=== PATIENT | female | born 1960 | race Caucasian/White ===

== ENCOUNTER 2018-10-28 20:22 | Inpatient (IN) | payer OTHER | END 2018-11-01 13:56 | disposition home or self-care (01) | LOC: EAST 10-31 09:47 → TELE 22:10 → TELE-EAST 10-29 08:43 → ER 20:22 | PROC: 0FT44ZZ Resection of Gallbladder, Percutaneous Endoscopic Approach (ICD-10-PCS; principal; 2018-10-30 13:25) | DX: A41.9 Sepsis, unspecified organism (principal); N17.0 Acute kidney failure with tubular necrosis; E87.0 Hyperosmolality and hypernatremia; F20.9 Schizophrenia, unspecified; N39.0 Urinary tract infection, site not specified; K80.10 Calculus of gallbladder with chronic cholecystitis without obstruction; I10 Essential (primary) hypertension ==

== ENCOUNTER 2020-08-03 08:38 | Emergency (ER) | payer OTHER ==
[~2020-08-03] VITALS: Ht 160 cm; Wt 116.1 kg
[~2020-08-03 08:38] MED LIST: BENZ0.5T19 PO; CEPH-37 PO; FLUC100T34 PO; GLIP10TA9 PO; INSU1INJ19 SC; LOSA-69 PO; METF-929 PO; PANT40T PO; ZIPR80CA37 PO
[2020-08-03] MEDS ORDERED: cloNIDine HCL 0.1 MG TAB PO ONE (09:00)
[2020-08-03 09:53] VITALS: BP 142/98
[2020-08-03] MEDS ORDERED: ACETAMINOPHEN/CODEINE#3 (300/30mg) TAB PO ONE (10:15)
[2020-08-03] MEDS ORDERED: LIDOCAINE 1% HCL (LOCAL ANESTH.) INJ 20ML MDV IJ ONE (10:15)
[2020-08-03] MEDS ORDERED: TETANUS-DIPTH-ACEL PERTUSSIS 0.5ML SYR Tdap IM ONE (10:45)
== END 2020-08-03 11:51 | disposition home or self-care (01) ==
LOC: ER 08:38
DX: S62.632B Displaced fracture of distal phalanx of right middle finger, initial encounter for open fracture (principal); E11.9 Type 2 diabetes mellitus without complications; I10 Essential (primary) hypertension; E78.5 Hyperlipidemia, unspecified; Z79.899 Other long term (current) drug therapy; W19.XXXA Unspecified fall, initial encounter; Y93.89 Activity, other specified; Y92.89 Other specified places as the place of occurrence of the external cause; Y99.8 Other external cause status
CPT/HCPCS: 11760; 73140; 73630; 90471; 90715; 99284; J2001

== ENCOUNTER 2020-08-14 07:02 | Emergency (ER) | payer OTHER ==
[~2020-08-14] VITALS: Ht 160 cm; Wt 116.1 kg
[2020-08-14 07:05] VITALS: BP 161/83
== END 2020-08-14 08:33 | disposition home or self-care (01) ==
LOC: ER 07:02
DX: S61.212D Laceration without foreign body of right middle finger without damage to nail, subsequent encounter (principal); E11.9 Type 2 diabetes mellitus without complications; E78.5 Hyperlipidemia, unspecified; I10 Essential (primary) hypertension; Z76.0 Encounter for issue of repeat prescription; Z88.1 Allergy status to other antibiotic agents; X58.XXXD Exposure to other specified factors, subsequent encounter

== ENCOUNTER 2020-09-09 09:46 | Emergency (ER) | payer OTHER ==
[~2020-09-09] VITALS: Ht 160 cm; Wt 116.1 kg
[2020-09-09 10:08] VITALS: BP 130/100
[2020-09-09] MEDS ORDERED: ACETAMINOPHEN 500 MG TAB PO ONE (10:30)
== END 2020-09-09 12:15 | disposition home or self-care (01) ==
LOC: ER 09:46 → EDBD 09:46 → ER 12:15
DX: S39.012A Strain of muscle, fascia and tendon of lower back, initial encounter (principal); M51.36 Other intervertebral disc degeneration, lumbar region; E11.9 Type 2 diabetes mellitus without complications; E78.5 Hyperlipidemia, unspecified; I10 Essential (primary) hypertension; Z88.1 Allergy status to other antibiotic agents; W01.0XXA Fall on same level from slipping, tripping and stumbling without subsequent striking against object, initial encounter; Y93.01 Activity, walking, marching and hiking; Y92.89 Other specified places as the place of occurrence of the external cause; Y99.8 Other external cause status
CPT/HCPCS: 72100; 72220

== ENCOUNTER 2021-08-12 08:56 | Emergency (ER) | payer OTHER ==
[~2021-08-12] VITALS: Ht 160 cm; Wt 115.7 kg
[2021-08-12] MEDS ORDERED: FAMO20TA10 PO (09:24)
[2021-08-12] MEDS ORDERED: PRED20TA2 PO (09:24)
[2021-08-12] MEDS ORDERED: LORazepam 0.5 MG TAB PO ONE (09:45)
[2021-08-12 10:32] LABS: Basophils # (auto) 0.1 10 ^3/uL (0-0.2); Eosinophils # (auto) 0.1 10 ^3/uL (0-0.8); Eosinophils % (auto) 1.9 % (0.0-7.0); Hematocrit 38.5 % (36.0-46.0); Hemoglobin 12.9 g/dL (12.2-16.2); Lymphocytes # (auto) 1.2 10 ^3/uL (0.4-5.4); Lymphocytes % (auto) 18.2 % (10.0-50.0); Mean Corpuscular Hemoglobin 28.3 pg (28.0-32.0); Mean Corpuscular Hgb Conc. 33.6 g/dL (32.0-36.0); Mean Corpuscular Volume 84.2 fL (80.0-100.0); Monocytes # (auto) 0.5 10 ^3/uL (0-1.3); Monocytes % (auto) 7.1 % (0.0-12.0); Neutrophils # (auto) 4.8 10 ^3/uL (1.6-8.6); Neutrophils % (auto) 70.8 % (37.0-80.0); Red Blood Cells 4.57 10^6/uL (4.0-5.20); White Blood Cell 6.8 10^3/uL (4.4-10.8)
[2021-08-12 11:10] LABS: Albumin 2.7 g/dL (3.4-5.0); BUN/Creatinine Ratio 20.8; Calcium 8.8 mg/dL (8.5-10.1); Potassium 3.9 mmol/L (3.5-5.1)
[2021-08-12 11:14] LABS: Bilirubin, Total 0.2 mg/dL (0.2-1.0); Total Protein 7.1 g/dL (6.4-8.2)
[2021-08-12 12:15] VITALS: BP 119/62
[2021-08-12 12:43] LABS: Urine Bacteria NONE SEEN /hpf (None Seen); Urine Blood 2+ /uL (Negative); Urine WBC 203 /hpf (0 - 5); Urine WBC Clumps PRESENT /hpf (None Seen)
== END 2021-08-12 14:06 | disposition home or self-care (01) ==
LOC: ER 08:56
DX: G45.9 Transient cerebral ischemic attack, unspecified (principal); I10 Essential (primary) hypertension; E11.9 Type 2 diabetes mellitus without complications; E78.5 Hyperlipidemia, unspecified; Z79.4 Long term (current) use of insulin; Z79.899 Other long term (current) drug therapy; Z88.1 Allergy status to other antibiotic agents; Z88.8 Allergy status to other drugs, medicaments and biological substances
CPT/HCPCS: 36415; 70450; 80053; 81001; 84484; 85025

== ENCOUNTER 2022-02-09 09:16 | Emergency (ER) | payer OTHER ==
[~2022-02-09] VITALS: Ht 160 cm; Wt 115.0 kg
[~2022-02-09 09:16] MED LIST changes: +FAMO20TA10 PO; +PRED20TA2 PO
[2022-02-09 10:39] VITALS: BP 115/97
[2022-02-09] MEDS ORDERED: KETO2CRE4 TOP (11:05)
[2022-02-09] MEDS ORDERED: CEPH-510 PO (11:05)
[2022-02-09] MEDS ORDERED: METR500T PO (11:05)
== END 2022-02-09 11:15 | disposition home or self-care (01) ==
LOC: ER 09:16
DX: N76.0 Acute vaginitis (principal); B35.6 Tinea cruris; I10 Essential (primary) hypertension; E11.9 Type 2 diabetes mellitus without complications; E78.5 Hyperlipidemia, unspecified; Z79.4 Long term (current) use of insulin; Z79.899 Other long term (current) drug therapy; Z88.1 Allergy status to other antibiotic agents; Z88.8 Allergy status to other drugs, medicaments and biological substances
CPT/HCPCS: 87210

== ENCOUNTER 2022-06-12 13:43 | Inpatient (IN) | payer OTHER ==
[~2022-06-12] VITALS: Ht 160 cm; Wt 150.2 kg
[~2022-06-12 13:43] MED LIST changes: +CEPH-510 PO; +KETO2CRE4 TOP; +METR500T PO
[2022-06-12 15:42] LABS: Basophils # (auto) 0 10 ^3/uL (0-0.2); Basophils % (auto) 0.3 % (0.0-2.0); Eosinophils # (auto) 0 10 ^3/uL (0-0.8); Eosinophils % (auto) 0.6 % (0.0-7.0); Hematocrit 37.1 % (36.0-46.0); Hemoglobin 11.5 g/dL (12.2-16.2); Lymphocytes # (auto) 0.7 10 ^3/uL (0.4-5.4); Lymphocytes % (auto) 8.8 % (10.0-50.0); Mean Corpuscular Hgb Conc. 31.2 g/dL (32.0-36.0); Mean Corpuscular Volume 86.5 fL (80.0-100.0); Monocytes # (auto) 0.7 10 ^3/uL (0-1.3); Monocytes % (auto) 8.9 % (0.0-12.0); Neutrophils # (auto) 6.7 10 ^3/uL (1.6-8.6); Neutrophils % (auto) 81.4 % (37.0-80.0); Red Blood Cells 4.28 10^6/uL (4.0-5.20); Red Cell Distribution Width 17.1 % (11.8-14.3); White Blood Cell 8.2 10^3/uL (4.4-10.8)
[2022-06-12 15:54] LABS: Albumin 2.9 g/dL (3.4-5.0); Potassium 4.4 mmol/L (3.5-5.1)
[2022-06-12 15:56] LABS: Bilirubin, Total 0.2 mg/dL (0.2-1.0); Total Protein 6.6 g/dL (6.4-8.2)
[2022-06-12 22:12] LABS: Urine Bacteria MOD /hpf (None Seen); Urine Blood 1+ /uL (Negative); Urine Mucus FEW (None Seen); Urine Specific Gravity 1.022 (1.001-1.035); Urine WBC 60 /hpf (0 - 5)
[2022-06-13] MEDS ORDERED: ALBUTEROL SULF 2.5 MG/0.5ML(0.5%) NEB SOLN NEB PRN ×2 (01:15→11:00)
[2022-06-13] MEDS ORDERED: AZITHROMYCIN 500MG/ 250ML 250 ML IV ONE (01:15)
[2022-06-13] MEDS ORDERED: DEXTROSE (50%) 50ML SYRG IV PRN (01:15)
[2022-06-13] MEDS ORDERED: ACETAMINOPHEN 325 MG TAB PO PRN (01:15)
[2022-06-13] MEDS ORDERED: cefTRIAXone 1GM/50ML D5W 50 ML IV ONE (01:15)
[2022-06-13] MEDS ORDERED: TEMAZEPAM 15 MG CAP PO PRN (01:15)
[2022-06-13] MEDS ORDERED: ONDANSETRON HCL 4 MG/2 ML VIAL IV PRN (01:15)
[2022-06-13] MEDS ORDERED: IOHEXOL 350 MG/ML 100ML IJ ONE (01:42)
[2022-06-13 03:00] VITALS: BP 147/75
[2022-06-13] MEDS ORDERED: ALBUTEROL MEDNEB 2.5 mg/3ml NEB ONE (03:09)
[2022-06-13] MEDS: InsuLIN REG 1unit/0.01ml Soln (100units/ml) SC SCH ×4 (07:00→23:03)
[2022-06-13] MEDS: ACCU-CHEK COMFORT CURVE STRIP VI SCH ×4 (07:00→22:00)
[2022-06-13] MEDS: ENOXAPARIN SOD 40 MG/0.4 ML SYRINGE SC SCH (10:04)
[2022-06-13] MEDS: MULTIPLE VITAMIN TAB PO SCH (10:04)
[2022-06-13] MEDS: PANTOPRAZOLE 40 MG TAB PO SCH (10:04)
[2022-06-13] MEDS: LOSARTAN POTASSIUM 50 MG TAB PO SCH (10:05)
[2022-06-13] MEDS ORDERED: MORPHINE SULFATE INJ 2 MG/ml SYRG IV PRN (11:00)
[2022-06-13] MEDS ORDERED: HYDROcodone-ACET 5/325MG TAB PO PRN (11:00)
[2022-06-13] MEDS ORDERED: DOCUSATE SOD 100 MG CAP PO PRN (11:00)
[2022-06-13] MEDS ORDERED: ACETAMINOPHEN 500 MG TAB PO PRN (11:00)
[2022-06-13] MEDS ORDERED: IPRATROPIUM BROM 0.5 MG/2.5ML INH SOL NEB PRN (11:00)
[2022-06-13] MEDS: PIPERACILLIN-TAZOB 3.375GM 100 ML IV SCH ×2 (12:16→19:50)
[2022-06-13] MEDS ORDERED: cefTRIAXone 1GM/50ML D5W 50 ML IV SCH (21:00)
[2022-06-13 22:24] VITALS: BP 148/74
[2022-06-13 22:26] VITALS: BP 148/74
[2022-06-13] MEDS ORDERED: CEPH500C PO (22:50)
[2022-06-13] MEDS: AZITHROMYCIN 500MG/ 250ML 250 ML IV SCH (23:02)
[2022-06-14] MEDS: PIPERACILLIN-TAZOB 3.375GM 100 ML IV SCH ×4 (01:39→18:35)
[2022-06-14 05:00] VITALS: BP 116/60
[2022-06-14] MEDS: InsuLIN REG 1unit/0.01ml Soln (100units/ml) SC SCH ×4 (06:23→21:36)
[2022-06-14] MEDS: ACCU-CHEK COMFORT CURVE STRIP VI SCH ×4 (06:23→21:36)
[2022-06-14 06:59] LABS: Albumin 2.9 g/dL (3.4-5.0); Calcium 8.5 mg/dL (8.5-10.1); Potassium 4.6 mmol/L (3.5-5.1)
[2022-06-14 07:02] LABS: BUN/Creatinine Ratio 27.9; Bilirubin, Total 0.3 mg/dL (0.2-1.0); Total Protein 6.2 g/dL (6.4-8.2)
[2022-06-14 07:06] LABS: Basophils # (auto) 0 10 ^3/uL (0-0.2); Eosinophils # (auto) 0.1 10 ^3/uL (0-0.8); Monocytes # (auto) 0.7 10 ^3/uL (0-1.3)
[2022-06-14 07:10] LABS: Basophils % (auto) 0.4 % (0.0-2.0); Eosinophils % (auto) 1.3 % (0.0-7.0); Hematocrit 34.6 % (36.0-46.0); Hemoglobin 10.5 g/dL (12.2-16.2); Lymphocytes # (auto) 0.7 10 ^3/uL (0.4-5.4); Lymphocytes % (auto) 9.4 % (10.0-50.0); Mean Corpuscular Hemoglobin 26.3 pg (28.0-32.0); Mean Corpuscular Hgb Conc. 30.4 g/dL (32.0-36.0); Mean Corpuscular Volume 86.8 fL (80.0-100.0); Neutrophils # (auto) 5.9 10 ^3/uL (1.6-8.6); Neutrophils % (auto) 79.9 % (37.0-80.0); Red Blood Cells 3.99 10^6/uL (4.0-5.20); Red Cell Distribution Width 16.9 % (11.8-14.3); White Blood Cell 7.4 10^3/uL (4.4-10.8)
[2022-06-14 09:00] VITALS: BP 129/54
[2022-06-14] MEDS ORDERED: DIPHENOXYLATE W/ATROPINE 2.5 MG TAB PO PRN (10:15)
[2022-06-14] MEDS: ENOXAPARIN SOD 40 MG/0.4 ML SYRINGE SC SCH (11:02)
[2022-06-14] MEDS: MULTIPLE VITAMIN TAB PO SCH (11:03)
[2022-06-14] MEDS: PANTOPRAZOLE 40 MG TAB PO SCH (11:03)
[2022-06-14] MEDS: FLORASTOR (S. BOULARDII) 250 MG CAP PO SCH (11:03)
[2022-06-14] MEDS: LOSARTAN POTASSIUM 50 MG TAB PO SCH (11:03)
[2022-06-14 13:00] VITALS: BP 133/69
[2022-06-14 16:21] VITALS: BP 131/72
[2022-06-14 20:00] VITALS: BP 116/48
[2022-06-14 22:00] VITALS: BP 116/48
[2022-06-14] MEDS: AZITHROMYCIN 500MG/ 250ML 250 ML IV SCH (22:54)
[2022-06-15] VITALS (8 sets, daily range): BP systolic 103–134; BP diastolic 52–72
[2022-06-15] MEDS: PIPERACILLIN-TAZOB 3.375GM 100 ML IV SCH ×4 (01:09→18:00)
[2022-06-15] MEDS ORDERED: ALBUTEROL MEDNEB 2.5 mg/3ml NEB ONE (01:51)
[2022-06-15] MEDS: ACCU-CHEK COMFORT CURVE STRIP VI SCH ×4 (05:36→22:00)
[2022-06-15] MEDS: InsuLIN REG 1unit/0.01ml Soln (100units/ml) SC SCH ×4 (05:55→22:00)
[2022-06-15] MEDS ORDERED: FUROSEMIDE 20 MG TAB PO ONE (09:30)
[2022-06-15] MEDS: PANTOPRAZOLE 40 MG TAB PO SCH (10:07)
[2022-06-15] MEDS: ENOXAPARIN SOD 40 MG/0.4 ML SYRINGE SC SCH (10:07)
[2022-06-15] MEDS: FLORASTOR (S. BOULARDII) 250 MG CAP PO SCH (10:07)
[2022-06-15] MEDS: LOSARTAN POTASSIUM 50 MG TAB PO SCH (10:07)
[2022-06-15] MEDS: MULTIPLE VITAMIN TAB PO SCH (10:07)
[2022-06-15] MEDS: AZITHROMYCIN 500MG/ 250ML 250 ML IV SCH (21:57)
[2022-06-16] MEDS: PIPERACILLIN-TAZOB 3.375GM 100 ML IV SCH ×2 (02:33→11:41)
[2022-06-16 05:00] VITALS: BP 145/69
[2022-06-16 05:48] LABS: Basophils # (auto) 0.1 10 ^3/uL (0-0.2); Basophils % (auto) 1.5 % (0.0-2.0); Eosinophils # (auto) 0.1 10 ^3/uL (0-0.8); Eosinophils % (auto) 1.9 % (0.0-7.0); Hematocrit 33.3 % (36.0-46.0); Hemoglobin 10.2 g/dL (12.2-16.2); Lymphocytes # (auto) 0.5 10 ^3/uL (0.4-5.4); Lymphocytes % (auto) 7.4 % (10.0-50.0); Mean Corpuscular Hemoglobin 26.3 pg (28.0-32.0); Mean Corpuscular Hgb Conc. 30.5 g/dL (32.0-36.0); Mean Corpuscular Volume 86.3 fL (80.0-100.0); Monocytes # (auto) 0.7 10 ^3/uL (0-1.3); Monocytes % (auto) 9.1 % (0.0-12.0); Neutrophils # (auto) 5.7 10 ^3/uL (1.6-8.6); Neutrophils % (auto) 80.1 % (37.0-80.0); Nucleated Red Blood Cells % 0.1 %; Red Blood Cells 3.86 10^6/uL (4.0-5.20); Red Cell Distribution Width 16.9 % (11.8-14.3); White Blood Cell 7.2 10^3/uL (4.4-10.8)
[2022-06-16 06:01] LABS: BUN/Creatinine Ratio 22.9; Calcium 8.5 mg/dL (8.5-10.1); Potassium 4.4 mmol/L (3.5-5.1)
[2022-06-16] MEDS: ACCU-CHEK COMFORT CURVE STRIP VI SCH ×2 (06:08→11:30)
[2022-06-16] MEDS: InsuLIN REG 1unit/0.01ml Soln (100units/ml) SC SCH ×2 (06:09→11:39)
[2022-06-16 08:00] VITALS: BP 125/61
[2022-06-16] MEDS: MULTIPLE VITAMIN TAB PO SCH (09:49)
[2022-06-16] MEDS: LOSARTAN POTASSIUM 50 MG TAB PO SCH (09:49)
[2022-06-16] MEDS: FLORASTOR (S. BOULARDII) 250 MG CAP PO SCH (09:49)
[2022-06-16] MEDS: ENOXAPARIN SOD 40 MG/0.4 ML SYRINGE SC SCH (09:49)
[2022-06-16] MEDS: PANTOPRAZOLE 40 MG TAB PO SCH (09:49)
[2022-06-16 12:00] VITALS: BP 131/76
[2022-06-16] MEDS ORDERED: SACC250C PO (13:39)
[2022-06-16] MEDS ORDERED: CIPR500T4 PO (13:39)
[2022-06-16 16:00] VITALS: BP 113/95
[2022-06-16 16:05] VITALS: BP 113/95
== END 2022-06-16 16:48 | disposition home or self-care (01) | DRG 139 ==
LOC: ER 13:43 → OVERFLOW 06-13 01:08 → WEST WING 06-13 22:05
PROVIDERS: ADMIT Nurse Practitioner; ATTEND Nurse Practitioner Acute Care
DX: J18.9 Pneumonia, unspecified organism (principal); J96.01 Acute respiratory failure with hypoxia; J90 Pleural effusion, not elsewhere classified; E11.9 Type 2 diabetes mellitus without complications; I10 Essential (primary) hypertension; N39.0 Urinary tract infection, site not specified; E66.9 Obesity, unspecified; F41.9 Anxiety disorder, unspecified; Z20.822 Contact with and (suspected) exposure to COVID-19; I25.10 Atherosclerotic heart disease of native coronary artery without angina pectoris; E78.5 Hyperlipidemia, unspecified; F20.9 Schizophrenia, unspecified; Z68.43 Body mass index [BMI] 50.0-59.9, adult; Z88.1 Allergy status to other antibiotic agents; Z88.8 Allergy status to other drugs, medicaments and biological substances
CPT/HCPCS: 36415; 71045; 80048; 80053; 81001; 82962; 83036; 84443; 84484; 85025; 85379; 87086; 87088; 87186; 87205; 87426; 87804; 93005; 94640; G0378; J1815; J2543

== ENCOUNTER 2023-02-14 17:45 | Emergency (ER) | payer OTHER ==
[~2023-02-14] VITALS: Ht 160 cm; Wt 115.0 kg
[~2023-02-14 17:45] MED LIST changes: -CEPH-37 PO; +CIPR500T4 PO; -LOSA-69 PO; +LOSA50TA46 PO; +SACC250C PO
[2023-02-14 19:16] LABS: Basophils # (auto) 0 10 ^3/uL (0-0.2); Basophils % (auto) 0.4 % (0.0-2.0); Eosinophils # (auto) 0.1 10 ^3/uL (0-0.8); Eosinophils % (auto) 0.7 % (0.0-7.0); Hematocrit 32.9 % (36.0-46.0); Hemoglobin 10.3 g/dL (12.2-16.2); Lymphocytes # (auto) 0.8 10 ^3/uL (0.4-5.4); Lymphocytes % (auto) 11.7 % (10.0-50.0); Mean Corpuscular Hemoglobin 27.7 pg (28.0-32.0); Mean Corpuscular Hgb Conc. 31.4 g/dL (32.0-36.0); Mean Corpuscular Volume 88.2 fL (80.0-100.0); Monocytes # (auto) 0.6 10 ^3/uL (0-1.3); Monocytes % (auto) 8.2 % (0.0-12.0); Neutrophils # (auto) 5.7 10 ^3/uL (1.6-8.6); Red Blood Cells 3.73 10^6/uL (4.0-5.20); Red Cell Distribution Width 16.1 % (11.8-14.3); White Blood Cell 7.2 10^3/uL (4.4-10.8)
[2023-02-14 19:30] LABS: Alanine Aminotransferase 11 U/L (7-40); Albumin 3.8 g/dL (3.2-4.8); Alkaline Phosphatase 85 U/L (46-116); Anion Gap 4 (5-15); Aspartate Aminotransferase 13 U/L (13-40); BUN/Creatinine Ratio 15.2 (10.0-20.0); Bilirubin, Total 0.3 mg/dL (0.2-1.0); Blood Urea Nitrogen 15 mg/dL (9-23); Calcium 8.7 mg/dL (8.5-10.1); Carbon Dioxide 30 mmol/L (20-30); Chloride 109 mmol/L (98-107); Glucose 121 mg/dL (74-106); Potassium 4.5 mmol/L (3.5-5.1); Sodium 143 mmol/L (136-145); Total Protein 6.7 g/dL (5.7-8.2)
[2023-02-14 21:24] VITALS: BP 145/60; PULSE 91; RESP 18; TEMP 97.4; O2SAT 95
== END 2023-02-14 21:28 | disposition home or self-care (01) ==
LOC: ER 17:45
DX: N93.9 Abnormal uterine and vaginal bleeding, unspecified (principal); R10.2 Pelvic and perineal pain; I10 Essential (primary) hypertension; E11.9 Type 2 diabetes mellitus without complications; E78.5 Hyperlipidemia, unspecified; F20.9 Schizophrenia, unspecified; Z88.8 Allergy status to other drugs, medicaments and biological substances; Z79.899 Other long term (current) drug therapy
CPT/HCPCS: 36415; 76856; 80053; 85025

== ENCOUNTER 2023-05-12 06:48 | Inpatient (IN) | payer OTHER ==
[2023-05-12] VITALS (51 sets, daily range): BP systolic 98–158; BP diastolic 43–82; PULSE 59–134; RESP 15–18; TEMP 96.1–98.8; O2SAT 84–100
[~2023-05-12] VITALS: Ht 167.6 cm; Wt 110.0 kg
[2023-05-12] MEDS ORDERED: NOREPINEPHRINE 8 MG/250ML KIT 250 ML IV ONE (07:18)
[2023-05-12 07:44] LABS: Hemoglobin 10.7 g/dL (12.2-16.2)
[2023-05-12 07:45] LABS: Base Excess -3.9 mmol/L (-2.0-2.0)
[2023-05-12 07:47] LABS: Hematocrit 36.1 % (36.0-46.0); Mean Corpuscular Hgb Conc. 29.7 g/dL (32.0-36.0); Mean Corpuscular Volume 84.2 fL (80.0-100.0); Red Blood Cells 4.28 10^6/uL (4.0-5.20); Red Cell Distribution Width 19.3 % (11.8-14.3); White Blood Cell 11.2 10^3/uL (4.4-10.8)
[2023-05-12 07:50] LABS: Alanine Aminotransferase 20 U/L (7-40); Albumin 3.4 g/dL (3.2-4.8); Alkaline Phosphatase 85 U/L (46-116); Anion Gap 14 (5-15); Aspartate Aminotransferase 48 U/L (13-40); BUN/Creatinine Ratio 15.5 (10.0-20.0); Bilirubin, Total 0.3 mg/dL (0.2-1.0); Blood Urea Nitrogen 15 mg/dL (9-23); Carbon Dioxide 24 mmol/L (20-30); Chloride 101 mmol/L (98-107); Creatine Kinase IFCC 67 U/L (34-145); Glucose 251 mg/dL (74-106); Potassium 4.4 mmol/L (3.5-5.1); Sodium 139 mmol/L (136-145); Total Protein 6.1 g/dL (5.7-8.2)
[2023-05-12 07:59] LABS: INR 1.09 (0.9-1.15); Partial Thromboplastin Time 29.8 SEC (24.5-34.5); Prothrombin Time 11.4 sec (9.3-11.8)
[2023-05-12 08:00] LABS: Lactic Acid w/Reflex 7.8 mmol/L (0.4-2.0)
[2023-05-12 08:08] LABS: Band Neutrophils % (manual) 0; Basophils % (manual) 0 (0.0-2.0); Eosinophils % (manual) 0 (0-7); Reactive Lymphocytes 0
[2023-05-12] MEDS: NOREPINEPHRINE 8 MG/250ML KIT 250 ML IV SCH (08:11)
[2023-05-12] MEDS ORDERED: PIPERACILLIN-TAZO 4.5GM 100 ML IV ONE (08:15)
[2023-05-12] MEDS ORDERED: SODIUM CHLORIDE 0.9% 4,500 ML IV ONE (08:30)
[2023-05-12 08:42] LABS: Blast Cells 2; Lymphocytes % (manual) 25 (10.0-50.0); Metamyelocytes % 1; Monocytes % (manual) 5 (0-12); Myelocytes % 1; Promyelocytes % 2
[2023-05-12 08:43] LABS: Platelet Estimate Adequate
[2023-05-12 08:53] LABS: Base Excess -2.5 mmol/L (-2.0-2.0)
[2023-05-12 09:10] LABS: Magnesium 2.2 mg/dL (1.6-2.6)
[2023-05-12] MEDS ORDERED: VANCOMYCIN 1GM/200ML 200 ML IV SCH (10:00)
[2023-05-12] MEDS: MIDAZOLAM DRIP 50 mg/50mL 50 ML IV SCH ×3 (10:17→23:56)
[2023-05-12] MEDS: LINEZOLID 600MG/300ML 300 ML IV SCH ×2 (10:18→22:31)
[2023-05-12] MEDS ORDERED: ENOXAPARIN SOD 40 MG/0.4 ML SYRINGE SC SCH (10:30)
[2023-05-12] MEDS ORDERED: DOCUSATE SOD 100 MG CAP PO PRN (10:30)
[2023-05-12] MEDS ORDERED: ONDANSETRON HCL 4 MG/2 ML VIAL IV PRN (10:30)
[2023-05-12 11:22] LABS: COVID19 ANTIGEN SOFIA FIA NEGATIVE (NEGATIVE)
[2023-05-12 11:23] LABS: Rapid Influenza A Negative (Negative); Rapid Influenza B Negative (Negative)
[2023-05-12 11:48] LABS: Base Excess -1.3 mmol/L (-2.0-2.0)
[2023-05-12 12:12] LABS: Blood Alcohol < 3.0 mg/dL (<10)
[2023-05-12 12:14] LABS: Phosphorus 3.6 mg/dL (2.4-5.1)
[2023-05-12] MEDS: SODIUM CHLORIDE 0.9% 1,000 ML IV SCH ×3 (12:23→21:42)
[2023-05-12] MEDS: PROPOFOL 100 ML IV SCH (16:34)
[2023-05-12] MEDS: PIPERACILLIN-TAZO 4.5GM 100 ML IV SCH ×2 (16:41→22:34)
[2023-05-13] VITALS (108 sets, daily range): BP systolic 83–146; BP diastolic 41–69; PULSE 59–81; RESP 14–22; TEMP 96.4–98.4; O2SAT 95–100
[2023-05-13] MEDS: PROPOFOL 100 ML IV SCH ×6 (01:43→21:37)
[2023-05-13 03:56] LABS: Basophils # (auto) 0 10 ^3/uL (0-0.2); Eosinophils # (auto) 0 10 ^3/uL (0-0.8); Lymphocytes # (auto) 0.7 10 ^3/uL (0.4-5.4); Monocytes # (auto) 0.6 10 ^3/uL (0-1.3); Neutrophils % (auto) 90.1 % (37.0-80.0)
[2023-05-13 04:00] LABS: Hematocrit 30.8 % (36.0-46.0); Hemoglobin 9.7 g/dL (12.2-16.2); Mean Corpuscular Hemoglobin 25.1 pg (28.0-32.0); Mean Corpuscular Hgb Conc. 31.4 g/dL (32.0-36.0); Mean Corpuscular Volume 80.1 fL (80.0-100.0); Monocytes % (auto) 4.9 % (0.0-12.0); Neutrophils # (auto) 11.8 10 ^3/uL (1.6-8.6); Nucleated Red Blood Cells % 0.1 %; Red Blood Cells 3.85 10^6/uL (4.0-5.20); White Blood Cell 13.1 10^3/uL (4.4-10.8)
[2023-05-13 04:22] LABS: Alanine Aminotransferase 23 U/L (7-40); Albumin 3.1 g/dL (3.2-4.8); Alkaline Phosphatase 67 U/L (46-116); Anion Gap 10 (5-15); Aspartate Aminotransferase 51 U/L (13-40); Bilirubin, Total 0.3 mg/dL (0.2-1.0); Blood Urea Nitrogen 23 mg/dL (9-23); Calcium 8.1 mg/dL (8.7-10.4); Carbon Dioxide 24 mmol/L (20-30); Chloride 103 mmol/L (98-107); Glucose 241 mg/dL (74-106); Potassium 3.4 mmol/L (3.5-5.1); Sodium 137 mmol/L (136-145); Total Protein 5.6 g/dL (5.7-8.2)
[2023-05-13] MEDS: MIDAZOLAM DRIP 50 mg/50mL 50 ML IV SCH ×5 (04:32→22:11)
[2023-05-13] MEDS: PIPERACILLIN-TAZO 4.5GM 100 ML IV SCH ×3 (05:35→21:42)
[2023-05-13] MEDS: SODIUM CHLORIDE 0.9% 1,000 ML IV SCH ×2 (07:27→17:12)
[2023-05-13] MEDS: NOREPINEPHRINE 8 MG/250ML KIT 250 ML IV SCH (07:45)
[2023-05-13 08:02] LABS: Base Excess 2.5 mmol/L (-2.0-2.0)
[2023-05-13] MEDS: LINEZOLID 600MG/300ML 300 ML IV SCH ×2 (09:22→21:42)
[2023-05-13] MEDS ORDERED: ENOXAPARIN SOD 40 MG/0.4 ML SYRINGE SC SCH (10:00)
[2023-05-13] MEDS ORDERED: ASPirin 81 mg TAB NG SCH (10:00)
[2023-05-13] MEDS ORDERED: AZITHROMYCIN 500MG/ 250ML 250 ML IV ONE (12:15)
[2023-05-13 12:16] LABS: Urine Epithelial Cast None Seen /hpf (<5)
[2023-05-13 12:42] LABS: Urine Bacteria NONE SEEN /hpf (None Seen); Urine Blood TRACE /uL (Negative); Urine Clarity HAZY (Clear); Urine Color Yellow (Yellow); Urine Protein, UAD TRACE (Negative); Urine Specific Gravity 1.028 (1.001-1.035); Urine Urobilinogen Normal (Negative); Urine WBC 6 /hpf (0 - 5); Urine pH 5.5 (5.0-8.0)
[2023-05-13 14:07] LABS: Opiate Scree,Urine Neg (NEGATIVE)
[2023-05-13 14:08] LABS: Cannabinoid Screen, Urine Neg (NEGATIVE); Phencyclidine Screen, Urine Neg (NEGATIVE)
[2023-05-13 14:16] LABS: Amphetamine Screen, Urine Neg (NEGATIVE); Barbiturate Scree,Urine Neg (NEGATIVE); Benzodiazephine Screen, Urine Pos (NEGATIVE); Cocaine Screen, Urine Neg (NEGATIVE)
[2023-05-13] MEDS: levETIRAcetam 500 mg/100ml 100 ML IV SCH (21:42)
[2023-05-13] MEDS: NYSTATIN TOPICAL POWDER 15GM TOP SCH (21:43)
[2023-05-13] MEDS: MUPIROCIN 2% OINT 15gm or 22gm FOR MRSA NARES EACHNOSTRI SCH (22:00)
[2023-05-14] VITALS (115 sets, daily range): BP systolic 85–154; BP diastolic 43–71; PULSE 61–74; RESP 14–21; TEMP 96.1–98.6; O2SAT 96–100
[2023-05-14] MEDS: PROPOFOL 100 ML IV SCH ×5 (00:17→16:00)
[2023-05-14] MEDS: SODIUM CHLORIDE 0.9% 1,000 ML IV SCH ×3 (01:21→19:57)
[2023-05-14] MEDS: MIDAZOLAM DRIP 50 mg/50mL 50 ML IV SCH ×3 (02:21→10:29)
[2023-05-14 04:08] LABS: Eosinophils # (auto) 0.1 10 ^3/uL (0-0.8); Mean Corpuscular Hemoglobin 25.3 pg (28.0-32.0); Monocytes # (auto) 0.9 10 ^3/uL (0-1.3); Neutrophils % (auto) 77.1 % (37.0-80.0)
[2023-05-14 04:12] LABS: Basophils # (auto) 0 10 ^3/uL (0-0.2); Basophils % (auto) 0.4 % (0.0-2.0); Hematocrit 28.9 % (36.0-46.0); Hemoglobin 9.2 g/dL (12.2-16.2); Lymphocytes # (auto) 1.5 10 ^3/uL (0.4-5.4); Lymphocytes % (auto) 13.4 % (10.0-50.0); Mean Corpuscular Hgb Conc. 31.7 g/dL (32.0-36.0); Mean Corpuscular Volume 79.8 fL (80.0-100.0); Monocytes % (auto) 8.1 % (0.0-12.0); Neutrophils # (auto) 8.4 10 ^3/uL (1.6-8.6); Red Blood Cells 3.63 10^6/uL (4.0-5.20); Red Cell Distribution Width 19.1 % (11.8-14.3); White Blood Cell 10.9 10^3/uL (4.4-10.8)
[2023-05-14 04:28] LABS: Alanine Aminotransferase 16 U/L (7-40); Alkaline Phosphatase 63 U/L (46-116); Anion Gap 9 (5-15); BUN/Creatinine Ratio 20.5 (10.0-20.0); Blood Urea Nitrogen 18 mg/dL (9-23); Calcium 7.9 mg/dL (8.7-10.4); Carbon Dioxide 23 mmol/L (20-30); Chloride 105 mmol/L (98-107); Glucose 148 mg/dL (74-106); Magnesium 1.6 mg/dL (1.6-2.6); Potassium 2.9 mmol/L (3.5-5.1); Sodium 137 mmol/L (136-145)
[2023-05-14 04:29] LABS: Aspartate Aminotransferase 45 U/L (13-40); Bilirubin, Total 0.3 mg/dL (0.2-1.0); Phosphorus 2.1 mg/dL (2.4-5.1); Total Protein 5.5 g/dL (5.7-8.2)
[2023-05-14] MEDS: POTASSIUM CHL 20MEQ/100ML 100 ML IV SCH ×4 (06:07→15:03)
[2023-05-14] MEDS: PIPERACILLIN-TAZO 4.5GM 100 ML IV SCH ×3 (06:10→21:30)
[2023-05-14] MEDS ORDERED: POTASSIUM PHOSPHATE 26.4 MEQ in SODIUM CHL 0.9% 100 ML IV ONE (06:30)
[2023-05-14 07:12] LABS: Base Excess 0.3 mmol/L (-2.0-2.0)
[2023-05-14] MEDS: PANTOPRAZOLE 40 MG/10 ML VIAL INJ IV SCH (07:43)
[2023-05-14] MEDS: ENOXAPARIN SOD 40 MG/0.4 ML SYRINGE SC SCH (07:43)
[2023-05-14] MEDS: levETIRAcetam 500 mg/100ml 100 ML IV SCH ×2 (07:44→21:30)
[2023-05-14] MEDS: AZITHROMYCIN 500MG/ 250ML 250 ML IV SCH (07:44)
[2023-05-14] MEDS: LINEZOLID 600MG/300ML 300 ML IV SCH ×2 (08:39→21:30)
[2023-05-14] MEDS: MUPIROCIN 2% OINT 15gm or 22gm FOR MRSA NARES EACHNOSTRI SCH ×2 (09:22→21:30)
[2023-05-14] MEDS: NOREPINEPHRINE 8 MG/250ML KIT 250 ML IV SCH (09:27)
[2023-05-14] MEDS: NYSTATIN TOPICAL POWDER 15GM TOP SCH ×2 (09:56→21:30)
[2023-05-14] MEDS: MAGNESIUM SULFATE 1GM/100ML 100 ML IV SCH ×3 (13:44→15:09)
[2023-05-15] VITALS (111 sets, daily range): BP systolic 100–154; BP diastolic 51–79; PULSE 48–74; RESP 14–34; TEMP 96.8–98.8; O2SAT 96–100
[2023-05-15] MEDS: PROPOFOL 100 ML IV SCH ×2 (00:58→22:24)
[2023-05-15] MEDS: MIDAZOLAM DRIP 50 mg/50mL 50 ML IV SCH (00:59)
[2023-05-15 04:09] LABS: Basophils # (auto) 0.1 10 ^3/uL (0-0.2); Red Cell Distribution Width 19.6 % (11.8-14.3); White Blood Cell 8.2 10^3/uL (4.4-10.8)
[2023-05-15 04:11] LABS: Basophils % (auto) 0.6 % (0.0-2.0); Eosinophils # (auto) 0.1 10 ^3/uL (0-0.8); Eosinophils % (auto) 1.8 % (0.0-7.0); Hematocrit 28.1 % (36.0-46.0); Lymphocytes # (auto) 1.2 10 ^3/uL (0.4-5.4); Lymphocytes % (auto) 14.6 % (10.0-50.0); Mean Corpuscular Hemoglobin 25.8 pg (28.0-32.0); Mean Corpuscular Hgb Conc. 32.2 g/dL (32.0-36.0); Mean Corpuscular Volume 80.3 fL (80.0-100.0); Monocytes # (auto) 0.7 10 ^3/uL (0-1.3); Neutrophils # (auto) 6.1 10 ^3/uL (1.6-8.6); Nucleated Red Blood Cells % 0.1 %
[2023-05-15 04:20] LABS: Anion Gap 8 (5-15); Carbon Dioxide 22 mmol/L (20-30); Chloride 107 mmol/L (98-107); Potassium 3.7 mmol/L (3.5-5.1); Sodium 137 mmol/L (136-145)
[2023-05-15 04:21] LABS: Calcium 7.8 mg/dL (8.7-10.4)
[2023-05-15 04:26] LABS: Blood Urea Nitrogen 16 mg/dL (9-23); Glucose 105 mg/dL (74-106); Magnesium 2.1 mg/dL (1.6-2.6)
[2023-05-15 04:28] LABS: Phosphorus 3.2 mg/dL (2.4-5.1)
[2023-05-15] MEDS: SODIUM CHLORIDE 0.9% 1,000 ML IV SCH (04:43)
[2023-05-15] MEDS: PIPERACILLIN-TAZO 4.5GM 100 ML IV SCH ×3 (05:42→21:51)
[2023-05-15] MEDS: NOREPINEPHRINE 8 MG/250ML KIT 250 ML IV SCH (07:45)
[2023-05-15] MEDS: levETIRAcetam 500 mg/100ml 100 ML IV SCH ×2 (08:56→21:51)
[2023-05-15] MEDS: PANTOPRAZOLE 40 MG/10 ML VIAL INJ IV SCH (09:05)
[2023-05-15] MEDS: AZITHROMYCIN 500MG/ 250ML 250 ML IV SCH (09:05)
[2023-05-15] MEDS: ENOXAPARIN SOD 40 MG/0.4 ML SYRINGE SC SCH (09:05)
[2023-05-15] MEDS: LINEZOLID 600MG/300ML 300 ML IV SCH ×2 (09:05→21:51)
[2023-05-15] MEDS: NYSTATIN TOPICAL POWDER 15GM TOP SCH ×2 (09:06→21:51)
[2023-05-15] MEDS: MUPIROCIN 2% OINT 15gm or 22gm FOR MRSA NARES EACHNOSTRI SCH ×2 (09:13→21:51)
[2023-05-15 09:40] LABS: Base Excess -1.8 mmol/L (-2.0-2.0)
[2023-05-16] VITALS (117 sets, daily range): BP systolic 95–158; BP diastolic 45–93; PULSE 49–70; RESP 11–28; TEMP 97.3–98.6; O2SAT 95–100
[2023-05-16 04:17] LABS: Basophils # (auto) 0 10 ^3/uL (0-0.2); Eosinophils # (auto) 0.2 10 ^3/uL (0-0.8); Lymphocytes # (auto) 1.3 10 ^3/uL (0.4-5.4)
[2023-05-16 04:18] LABS: Basophils % (auto) 0.6 % (0.0-2.0); Eosinophils % (auto) 2.7 % (0.0-7.0); Lymphocytes % (auto) 18.8 % (10.0-50.0); Mean Corpuscular Hemoglobin 25.5 pg (28.0-32.0); Mean Corpuscular Hgb Conc. 32.1 g/dL (32.0-36.0); Mean Corpuscular Volume 79.6 fL (80.0-100.0); Monocytes # (auto) 0.6 10 ^3/uL (0-1.3); Monocytes % (auto) 8.4 % (0.0-12.0); Neutrophils # (auto) 4.6 10 ^3/uL (1.6-8.6); Neutrophils % (auto) 69.5 % (37.0-80.0); Red Blood Cells 3.52 10^6/uL (4.0-5.20); Red Cell Distribution Width 19.4 % (11.8-14.3); White Blood Cell 6.7 10^3/uL (4.4-10.8)
[2023-05-16 04:27] LABS: Alanine Aminotransferase 11 U/L (7-40); Albumin 2.8 g/dL (3.2-4.8); Alkaline Phosphatase 82 U/L (46-116); Anion Gap 6 (5-15); Aspartate Aminotransferase 45 U/L (13-40); BUN/Creatinine Ratio 14.8 (10.0-20.0); Bilirubin, Total 0.4 mg/dL (0.2-1.0); Blood Urea Nitrogen 13 mg/dL (9-23); Calcium 7.8 mg/dL (8.7-10.4); Carbon Dioxide 23 mmol/L (20-30); Chloride 107 mmol/L (98-107); Glucose 114 mg/dL (74-106); Potassium 3.7 mmol/L (3.5-5.1); Sodium 136 mmol/L (136-145)
[2023-05-16 04:28] LABS: Total Protein 5.2 g/dL (5.7-8.2)
[2023-05-16 05:06] LABS: RPR Non Reactive (Non Reactive)
[2023-05-16] MEDS: PIPERACILLIN-TAZO 4.5GM 100 ML IV SCH ×3 (05:30→21:34)
[2023-05-16] MEDS: MIDAZOLAM DRIP 50 mg/50mL 50 ML IV SCH (05:33)
[2023-05-16] MEDS: NOREPINEPHRINE 8 MG/250ML KIT 250 ML IV SCH (07:45)
[2023-05-16 08:10] LABS: Base Excess -1.3 mmol/L (-2.0-2.0)
[2023-05-16] MEDS: PANTOPRAZOLE 40 MG/10 ML VIAL INJ IV SCH (10:15)
[2023-05-16] MEDS: LINEZOLID 600MG/300ML 300 ML IV SCH ×2 (10:16→21:33)
[2023-05-16] MEDS: AZITHROMYCIN 500MG/ 250ML 250 ML IV SCH (10:16)
[2023-05-16] MEDS: ENOXAPARIN SOD 40 MG/0.4 ML SYRINGE SC SCH (10:16)
[2023-05-16] MEDS: MUPIROCIN 2% OINT 15gm or 22gm FOR MRSA NARES EACHNOSTRI SCH ×2 (10:17→21:35)
[2023-05-16] MEDS: NYSTATIN TOPICAL POWDER 15GM TOP SCH ×2 (10:17→21:34)
[2023-05-16] MEDS ORDERED: FUROSEMIDE 20 MG/2 ML VIAL IV ONE (11:15)
[2023-05-16] MEDS: levETIRAcetam 500 mg/100ml 100 ML IV SCH ×2 (12:31→21:33)
[2023-05-16] MEDS: PROPOFOL 100 ML IV SCH ×2 (15:25→21:20)
[2023-05-17] VITALS (112 sets, daily range): BP systolic 77–142; BP diastolic 37–101; PULSE 54–74; RESP 12–26; TEMP 98.1–99.7; O2SAT 96–100
[2023-05-17 04:03] LABS: Chloride 109 mmol/L (98-107); Potassium 3.5 mmol/L (3.5-5.1); Sodium 140 mmol/L (136-145)
[2023-05-17 04:04] LABS: Anion Gap 8 (5-15); Basophils # (auto) 0 10 ^3/uL (0-0.2); Basophils % (auto) 0.6 % (0.0-2.0); Calcium 8.1 mg/dL (8.5-10.1); Carbon Dioxide 23 mmol/L (20-30); Eosinophils # (auto) 0.3 10 ^3/uL (0-0.8); Mean Corpuscular Volume 80.1 fL (80.0-100.0); Monocytes # (auto) 0.6 10 ^3/uL (0-1.3); Nucleated Red Blood Cells % 0.1 %
[2023-05-17 04:07] LABS: Eosinophils % (auto) 4.3 % (0.0-7.0); Hematocrit 28.3 % (36.0-46.0); Hemoglobin 8.9 g/dL (12.2-16.2); Lymphocytes # (auto) 1.5 10 ^3/uL (0.4-5.4); Lymphocytes % (auto) 25.4 % (10.0-50.0); Mean Corpuscular Hemoglobin 25.3 pg (28.0-32.0); Mean Corpuscular Hgb Conc. 31.6 g/dL (32.0-36.0); Monocytes % (auto) 10.3 % (0.0-12.0); Neutrophils # (auto) 3.6 10 ^3/uL (1.6-8.6); Neutrophils % (auto) 59.4 % (37.0-80.0); Red Blood Cells 3.53 10^6/uL (4.0-5.20); Red Cell Distribution Width 19.4 % (11.8-14.3)
[2023-05-17 04:09] LABS: BUN/Creatinine Ratio 12.9 (10.0-20.0); Blood Urea Nitrogen 11 mg/dL (9-23); Glucose 99 mg/dL (74-106)
[2023-05-17] MEDS: PROPOFOL 100 ML IV SCH ×4 (05:02→21:28)
[2023-05-17] MEDS: PIPERACILLIN-TAZO 4.5GM 100 ML IV SCH ×3 (05:57→23:07)
[2023-05-17 07:23] LABS: Base Excess -0.6 mmol/L (-2.0-2.0)
[2023-05-17] MEDS: NOREPINEPHRINE 8 MG/250ML KIT 250 ML IV SCH (07:45)
[2023-05-17] MEDS: MIDAZOLAM DRIP 50 mg/50mL 50 ML IV SCH (09:45)
[2023-05-17] MEDS: levETIRAcetam 500 mg/100ml 100 ML IV SCH ×2 (10:02→21:28)
[2023-05-17] MEDS: PANTOPRAZOLE 40 MG/10 ML VIAL INJ IV SCH (10:05)
[2023-05-17] MEDS: ENOXAPARIN SOD 40 MG/0.4 ML SYRINGE SC SCH (10:06)
[2023-05-17] MEDS: AZITHROMYCIN 500MG/ 250ML 250 ML IV SCH (10:07)
[2023-05-17] MEDS: MUPIROCIN 2% OINT 15gm or 22gm FOR MRSA NARES EACHNOSTRI SCH ×2 (10:18→21:29)
[2023-05-17] MEDS: NYSTATIN TOPICAL POWDER 15GM TOP SCH ×2 (10:18→21:29)
[2023-05-17] MEDS: LINEZOLID 600MG/300ML 300 ML IV SCH ×2 (11:18→21:28)
[2023-05-18] VITALS (123 sets, daily range): BP systolic 102–185; BP diastolic 42–96; PULSE 52–78; RESP 12–23; TEMP 96.1–99.7; O2SAT 96–100
[2023-05-18] MEDS: PROPOFOL 100 ML IV SCH ×6 (00:59→20:40)
[2023-05-18] MEDS: PIPERACILLIN-TAZO 4.5GM 100 ML IV SCH ×3 (05:54→22:16)
[2023-05-18] MEDS: MIDAZOLAM DRIP 50 mg/50mL 50 ML IV SCH ×2 (05:54→17:29)
[2023-05-18] MEDS: NOREPINEPHRINE 8 MG/250ML KIT 250 ML IV SCH (07:45)
[2023-05-18 08:05] LABS: Base Excess 0.5 mmol/L (-2.0-2.0)
[2023-05-18] MEDS: ENOXAPARIN SOD 40 MG/0.4 ML SYRINGE SC SCH (10:00)
[2023-05-18] MEDS: PANTOPRAZOLE 40 MG/10 ML VIAL INJ IV SCH (10:37)
[2023-05-18] MEDS: LINEZOLID 600MG/300ML 300 ML IV SCH ×2 (10:37→21:37)
[2023-05-18] MEDS: MUPIROCIN 2% OINT 15gm or 22gm FOR MRSA NARES EACHNOSTRI SCH (10:39)
[2023-05-18] MEDS: levETIRAcetam 500 mg/100ml 100 ML IV SCH ×2 (10:39→21:37)
[2023-05-18] MEDS: NYSTATIN TOPICAL POWDER 15GM TOP SCH ×2 (10:39→21:37)
[2023-05-18] MEDS: hydrALAZINE HCL 20 MG/ML VL IV PRN (18:15)
[2023-05-19] VITALS (112 sets, daily range): BP systolic 97–198; BP diastolic 41–85; PULSE 53–69; RESP 15–22; TEMP 96.6–97.5; O2SAT 95–100
[2023-05-19] MEDS: MIDAZOLAM DRIP 50 mg/50mL 50 ML IV SCH ×4 (02:24→16:15)
[2023-05-19] MEDS: PROPOFOL 100 ML IV SCH ×5 (02:24→21:07)
[2023-05-19] MEDS: PIPERACILLIN-TAZO 4.5GM 100 ML IV SCH ×3 (06:18→23:18)
[2023-05-19 06:24] LABS: Chloride 109 mmol/L (98-107); Potassium 3.5 mmol/L (3.5-5.1); Sodium 140 mmol/L (136-145)
[2023-05-19 06:25] LABS: Anion Gap 8 (5-15); Carbon Dioxide 23 mmol/L (20-30)
[2023-05-19 06:26] LABS: Calcium 8.3 mg/dL (8.7-10.4)
[2023-05-19 06:30] LABS: BUN/Creatinine Ratio 11.8 (10.0-20.0); Blood Urea Nitrogen 8 mg/dL (9-23); Glucose 88 mg/dL (74-106)
[2023-05-19 06:43] LABS: Base Excess 0.1 mmol/L (-2.0-2.0)
[2023-05-19 07:00] LABS: Eosinophils # (auto) 0.4 10 ^3/uL (0-0.8); Lymphocytes # (auto) 1.1 10 ^3/uL (0.4-5.4); Neutrophils % (auto) 74.4 % (37.0-80.0)
[2023-05-19 07:03] LABS: Basophils # (auto) 0.1 10 ^3/uL (0-0.2); Basophils % (auto) 0.6 % (0.0-2.0); Eosinophils % (auto) 4.7 % (0.0-7.0); Hematocrit 30.2 % (36.0-46.0); Hemoglobin 9.5 g/dL (12.2-16.2); Lymphocytes % (auto) 13.1 % (10.0-50.0); Mean Corpuscular Hgb Conc. 31.6 g/dL (32.0-36.0); Mean Corpuscular Volume 79.3 fL (80.0-100.0); Monocytes # (auto) 0.6 10 ^3/uL (0-1.3); Monocytes % (auto) 7.2 % (0.0-12.0); Neutrophils # (auto) 6.2 10 ^3/uL (1.6-8.6); Nucleated Red Blood Cells % 0.1 %; Red Blood Cells 3.82 10^6/uL (4.0-5.20); Red Cell Distribution Width 19.9 % (11.8-14.3); White Blood Cell 8.4 10^3/uL (4.4-10.8)
[2023-05-19] MEDS: NOREPINEPHRINE 8 MG/250ML KIT 250 ML IV SCH (07:45)
[2023-05-19] MEDS: ENOXAPARIN SOD 40 MG/0.4 ML SYRINGE SC SCH (10:00)
[2023-05-19] MEDS: LINEZOLID 600MG/300ML 300 ML IV SCH ×3 (10:51→21:39)
[2023-05-19] MEDS: levETIRAcetam 500 mg/100ml 100 ML IV SCH ×3 (10:51→21:39)
[2023-05-19] MEDS: NYSTATIN TOPICAL POWDER 15GM TOP SCH ×2 (10:52→21:38)
[2023-05-19] MEDS: PANTOPRAZOLE 40 MG/10 ML VIAL INJ IV SCH (10:52)
[2023-05-19] MEDS ORDERED: FUROSEMIDE 20 MG/2 ML VIAL IV ONE (14:00)
[2023-05-19] MEDS ORDERED: ALBUMIN 25% 100 ML IV ONE (14:00)
[2023-05-19] MEDS: hydrALAZINE HCL 20 MG/ML VL IV PRN ×2 (17:31→23:50)
[2023-05-20] VITALS (120 sets, daily range): BP systolic 68–182; BP diastolic 31–123; PULSE 47–77; RESP 14–23; TEMP 93.7–97.9; O2SAT 95–100
[2023-05-20] MEDS: PROPOFOL 100 ML IV SCH ×6 (02:10→22:27)
[2023-05-20] MEDS: MIDAZOLAM DRIP 50 mg/50mL 50 ML IV SCH ×3 (02:10→22:08)
[2023-05-20 03:46] LABS: Basophils # (auto) 0.1 10 ^3/uL (0-0.2); Basophils % (auto) 0.8 % (0.0-2.0); Eosinophils # (auto) 0.3 10 ^3/uL (0-0.8); Hematocrit 29.8 % (36.0-46.0); Hemoglobin 9.4 g/dL (12.2-16.2); Lymphocytes # (auto) 1.4 10 ^3/uL (0.4-5.4); Lymphocytes % (auto) 20.6 % (10.0-50.0); Mean Corpuscular Hemoglobin 25.2 pg (28.0-32.0); Mean Corpuscular Hgb Conc. 31.6 g/dL (32.0-36.0); Mean Corpuscular Volume 79.7 fL (80.0-100.0); Monocytes # (auto) 0.5 10 ^3/uL (0-1.3); Monocytes % (auto) 7.4 % (0.0-12.0); Neutrophils # (auto) 4.5 10 ^3/uL (1.6-8.6); Neutrophils % (auto) 67.2 % (37.0-80.0); Red Blood Cells 3.74 10^6/uL (4.0-5.20); Red Cell Distribution Width 19.4 % (11.8-14.3); White Blood Cell 6.8 10^3/uL (4.4-10.8)
[2023-05-20 04:00] LABS: Anion Gap 10 (5-15); Carbon Dioxide 22 mmol/L (20-30); Chloride 109 mmol/L (98-107); Potassium 3.2 mmol/L (3.5-5.1); Sodium 141 mmol/L (136-145)
[2023-05-20 04:01] LABS: Calcium 8.5 mg/dL (8.7-10.4)
[2023-05-20 04:06] LABS: BUN/Creatinine Ratio 13.2 (10.0-20.0); Blood Urea Nitrogen 9 mg/dL (9-23); Glucose 97 mg/dL (74-106)
[2023-05-20] MEDS: PIPERACILLIN-TAZO 4.5GM 100 ML IV SCH ×3 (05:42→22:02)
[2023-05-20] MEDS: NOREPINEPHRINE 8 MG/250ML KIT 250 ML IV SCH ×2 (07:45→15:11)
[2023-05-20 07:53] LABS: Base Excess 1.2 mmol/L (-2.0-2.0)
[2023-05-20] MEDS ORDERED: POTASSIUM EFFERVESENT TAB 25 MEQ PO ONE (09:00)
[2023-05-20] MEDS: levETIRAcetam 500 mg/100ml 100 ML IV SCH (09:50)
[2023-05-20] MEDS: PANTOPRAZOLE 40 MG/10 ML VIAL INJ IV SCH (09:50)
[2023-05-20] MEDS: ENOXAPARIN SOD 40 MG/0.4 ML SYRINGE SC SCH (10:00)
[2023-05-20] MEDS: LINEZOLID 600MG/300ML 300 ML IV SCH ×2 (10:15→22:02)
[2023-05-20] MEDS: NYSTATIN TOPICAL POWDER 15GM TOP SCH ×2 (10:45→22:02)
[2023-05-21] VITALS (108 sets, daily range): BP systolic 102–181; BP diastolic 48–82; PULSE 52–95; RESP 13–29; TEMP 96.1–98.8; O2SAT 98–100
[2023-05-21] MEDS: PROPOFOL 100 ML IV SCH ×3 (01:44→19:08)
[2023-05-21] MEDS: PIPERACILLIN-TAZO 4.5GM 100 ML IV SCH ×3 (05:59→21:16)
[2023-05-21 08:25] LABS: Base Excess 0.5 mmol/L (-2.0-2.0)
[2023-05-21 08:36] LABS: Eosinophils # (auto) 0.4 10 ^3/uL (0-0.8); Eosinophils % (auto) 5.3 % (0.0-7.0); Lymphocytes # (auto) 1.5 10 ^3/uL (0.4-5.4); Monocytes # (auto) 0.6 10 ^3/uL (0-1.3); Red Cell Distribution Width 19.5 % (11.8-14.3)
[2023-05-21 08:39] LABS: Basophils # (auto) 0.1 10 ^3/uL (0-0.2); Basophils % (auto) 0.8 % (0.0-2.0); Hematocrit 30.1 % (36.0-46.0); Hemoglobin 9.5 g/dL (12.2-16.2); Lymphocytes % (auto) 21.8 % (10.0-50.0); Mean Corpuscular Hemoglobin 25.1 pg (28.0-32.0); Mean Corpuscular Hgb Conc. 31.7 g/dL (32.0-36.0); Mean Corpuscular Volume 79.2 fL (80.0-100.0); Monocytes % (auto) 9.2 % (0.0-12.0); Neutrophils # (auto) 4.3 10 ^3/uL (1.6-8.6); Neutrophils % (auto) 62.9 % (37.0-80.0); Nucleated Red Blood Cells % 0.1 %; White Blood Cell 6.8 10^3/uL (4.4-10.8)
[2023-05-21 09:05] LABS: Albumin 3.1 g/dL (3.2-4.8); Alkaline Phosphatase 85 U/L (46-116); Anion Gap 11 (5-15); Aspartate Aminotransferase 41 U/L (13-40); BUN/Creatinine Ratio 10.9 (10.0-20.0); Blood Urea Nitrogen 7 mg/dL (9-23); Calcium 8.8 mg/dL (8.5-10.1); Carbon Dioxide 23 mmol/L (20-30); Chloride 109 mmol/L (98-107); Glucose 100 mg/dL (74-106); Potassium 3.4 mmol/L (3.5-5.1); Sodium 143 mmol/L (136-145)
[2023-05-21 09:06] LABS: Bilirubin, Total 0.3 mg/dL (0.2-1.0); Total Protein 5.5 g/dL (5.7-8.2)
[2023-05-21 09:10] LABS: Alanine Aminotransferase < 9 U/L (7-40)
[2023-05-21] MEDS: levETIRAcetam 1000 mg/100ml 100 ML IV SCH ×2 (09:38→21:16)
[2023-05-21] MEDS: ENOXAPARIN SOD 40 MG/0.4 ML SYRINGE SC SCH (09:38)
[2023-05-21] MEDS: PANTOPRAZOLE 40 MG/10 ML VIAL INJ IV SCH (09:38)
[2023-05-21] MEDS: LINEZOLID 600MG/300ML 300 ML IV SCH ×2 (09:38→21:16)
[2023-05-21] MEDS: NYSTATIN TOPICAL POWDER 15GM TOP SCH ×2 (09:39→21:16)
[2023-05-21] MEDS: POTASSIUM CHL 20MEQ/100ML 100 ML IV SCH ×2 (17:40→19:43)
[2023-05-21] MEDS: MIDAZOLAM DRIP 50 mg/50mL 50 ML IV SCH (21:15)
[2023-05-21] MEDS: hydrALAZINE HCL 20 MG/ML VL IV PRN (21:15)
[2023-05-22] VITALS (104 sets, daily range): BP systolic 97–142; BP diastolic 50–74; PULSE 55–96; RESP 13–99; TEMP 93.3–99; O2SAT 96–100
[2023-05-22] MEDS: PROPOFOL 100 ML IV SCH ×5 (00:04→21:56)
[2023-05-22] MEDS: PIPERACILLIN-TAZO 4.5GM 100 ML IV SCH ×3 (05:33→21:36)
[2023-05-22] MEDS: NOREPINEPHRINE 8 MG/250ML KIT 250 ML IV SCH (07:45)
[2023-05-22 08:03] LABS: Base Excess 0.3 mmol/L (-2.0-2.0)
[2023-05-22 08:26] LABS: Basophils # (auto) 0 10 ^3/uL (0-0.2); Basophils % (auto) 0.7 % (0.0-2.0); Eosinophils # (auto) 0.2 10 ^3/uL (0-0.8); Hemoglobin 9.9 g/dL (12.2-16.2); Lymphocytes # (auto) 1.6 10 ^3/uL (0.4-5.4); Mean Corpuscular Hgb Conc. 31.2 g/dL (32.0-36.0); Monocytes # (auto) 0.5 10 ^3/uL (0-1.3); Monocytes % (auto) 8.7 % (0.0-12.0); Neutrophils # (auto) 3.5 10 ^3/uL (1.6-8.6)
[2023-05-22 08:29] LABS: Eosinophils % (auto) 3.9 % (0.0-7.0); Hematocrit 31.8 % (36.0-46.0); Lymphocytes % (auto) 27.3 % (10.0-50.0); Mean Corpuscular Hemoglobin 24.9 pg (28.0-32.0); Mean Corpuscular Volume 79.9 fL (80.0-100.0); Neutrophils % (auto) 59.4 % (37.0-80.0); Nucleated Red Blood Cells % 0.2 %; Red Blood Cells 3.98 10^6/uL (4.0-5.20); White Blood Cell 5.9 10^3/uL (4.4-10.8)
[2023-05-22 08:42] LABS: Alanine Aminotransferase 12 U/L (7-40); Alkaline Phosphatase 86 U/L (46-116); Anion Gap 8 (5-15); Aspartate Aminotransferase 42 U/L (13-40); Blood Urea Nitrogen 8 mg/dL (9-23); Calcium 8.7 mg/dL (8.5-10.1); Carbon Dioxide 23 mmol/L (20-30); Chloride 108 mmol/L (98-107); Glucose 114 mg/dL (74-106); Potassium 3.7 mmol/L (3.5-5.1); Sodium 139 mmol/L (136-145)
[2023-05-22 08:43] LABS: Bilirubin, Total 0.2 mg/dL (0.2-1.0); Total Protein 5.4 g/dL (5.7-8.2)
[2023-05-22 08:44] LABS: Red Cell Distribution Width 20.1 % (11.8-14.3)
[2023-05-22] MEDS: PANTOPRAZOLE 40 MG/10 ML VIAL INJ IV SCH (09:35)
[2023-05-22] MEDS: ENOXAPARIN SOD 40 MG/0.4 ML SYRINGE SC SCH (09:35)
[2023-05-22] MEDS: levETIRAcetam 1000 mg/100ml 100 ML IV SCH ×2 (09:35→21:35)
[2023-05-22] MEDS: NYSTATIN TOPICAL POWDER 15GM TOP SCH ×2 (09:38→21:36)
[2023-05-22] MEDS: LINEZOLID 600MG/300ML 300 ML IV SCH ×2 (10:00→21:35)
[2023-05-22] MEDS: MIDAZOLAM DRIP 50 mg/50mL 50 ML IV SCH (12:59)
[2023-05-23] VITALS (114 sets, daily range): BP systolic 78–129; BP diastolic 28–70; PULSE 61–107; RESP 12–26; TEMP 97.3–97.6; O2SAT 97–100
[2023-05-23] MEDS: MIDAZOLAM DRIP 50 mg/50mL 50 ML IV SCH (00:18)
[2023-05-23] MEDS: PROPOFOL 100 ML IV SCH ×3 (02:24→22:55)
[2023-05-23 04:24] LABS: Chloride 106 mmol/L (98-107); Potassium 3.6 mmol/L (3.5-5.1); Sodium 137 mmol/L (136-145)
[2023-05-23 04:25] LABS: Anion Gap 9 (5-15); Carbon Dioxide 22 mmol/L (20-30)
[2023-05-23 04:26] LABS: Calcium 8.5 mg/dL (8.7-10.4)
[2023-05-23 04:27] LABS: Basophils # (auto) 0 10 ^3/uL (0-0.2); Basophils % (auto) 0.6 % (0.0-2.0); Eosinophils # (auto) 0.2 10 ^3/uL (0-0.8); Eosinophils % (auto) 2.2 % (0.0-7.0); Hematocrit 30.9 % (36.0-46.0); Hemoglobin 9.7 g/dL (12.2-16.2); Lymphocytes # (auto) 1.6 10 ^3/uL (0.4-5.4); Mean Corpuscular Hemoglobin 25.1 pg (28.0-32.0); Mean Corpuscular Hgb Conc. 31.5 g/dL (32.0-36.0); Mean Corpuscular Volume 79.8 fL (80.0-100.0); Monocytes # (auto) 0.5 10 ^3/uL (0-1.3); Monocytes % (auto) 7.1 % (0.0-12.0); Neutrophils # (auto) 4.8 10 ^3/uL (1.6-8.6); Neutrophils % (auto) 68.1 % (37.0-80.0); Nucleated Red Blood Cells % 0.1 %; Red Blood Cells 3.88 10^6/uL (4.0-5.20); Red Cell Distribution Width 19.5 % (11.8-14.3); White Blood Cell 7.1 10^3/uL (4.4-10.8)
[2023-05-23 04:30] LABS: Glucose 115 mg/dL (74-106)
[2023-05-23 04:31] LABS: BUN/Creatinine Ratio 17.5 (10.0-20.0); Blood Urea Nitrogen 10 mg/dL (9-23); Magnesium 1.7 mg/dL (1.6-2.6)
[2023-05-23] MEDS: PIPERACILLIN-TAZO 4.5GM 100 ML IV SCH ×3 (05:39→22:10)
[2023-05-23] MEDS: NOREPINEPHRINE 8 MG/250ML KIT 250 ML IV SCH (07:45)
[2023-05-23] MEDS: PANTOPRAZOLE 40 MG/10 ML VIAL INJ IV SCH (07:47)
[2023-05-23] MEDS: levETIRAcetam 1000 mg/100ml 100 ML IV SCH ×2 (07:48→22:09)
[2023-05-23] MEDS: ENOXAPARIN SOD 40 MG/0.4 ML SYRINGE SC SCH (07:48)
[2023-05-23] MEDS: NYSTATIN TOPICAL POWDER 15GM TOP SCH ×2 (07:55→22:10)
[2023-05-23] MEDS: LINEZOLID 600MG/300ML 300 ML IV SCH ×2 (08:29→22:10)
[2023-05-23 09:28] LABS: Base Excess -1.4 mmol/L (-2.0-2.0)
[2023-05-24] VITALS (115 sets, daily range): BP systolic 75–174; BP diastolic 32–110; PULSE 60–92; RESP 14–27; TEMP 97.3–97.8; O2SAT 97–100
[2023-05-24] MEDS: MIDAZOLAM DRIP 50 mg/50mL 50 ML IV SCH ×2 (01:50→14:13)
[2023-05-24 03:54] LABS: Eosinophils # (auto) 0.1 10 ^3/uL (0-0.8); Hemoglobin 9.7 g/dL (12.2-16.2); Monocytes # (auto) 0.5 10 ^3/uL (0-1.3); Neutrophils # (auto) 7.7 10 ^3/uL (1.6-8.6)
[2023-05-24 03:57] LABS: Basophils # (auto) 0 10 ^3/uL (0-0.2); Basophils % (auto) 0.3 % (0.0-2.0); Eosinophils % (auto) 0.6 % (0.0-7.0); Hematocrit 30.3 % (36.0-46.0); Lymphocytes # (auto) 1.1 10 ^3/uL (0.4-5.4); Lymphocytes % (auto) 11.9 % (10.0-50.0); Mean Corpuscular Hemoglobin 25.6 pg (28.0-32.0); Mean Corpuscular Hgb Conc. 32.2 g/dL (32.0-36.0); Mean Corpuscular Volume 79.6 fL (80.0-100.0); Monocytes % (auto) 5.5 % (0.0-12.0); Neutrophils % (auto) 81.7 % (37.0-80.0); Red Cell Distribution Width 19.7 % (11.8-14.3); White Blood Cell 9.4 10^3/uL (4.4-10.8)
[2023-05-24 04:06] LABS: Anion Gap 7 (5-15); Calcium 8.6 mg/dL (8.7-10.4); Carbon Dioxide 23 mmol/L (20-30); Chloride 109 mmol/L (98-107); Potassium 3.3 mmol/L (3.5-5.1); Sodium 139 mmol/L (136-145)
[2023-05-24 04:12] LABS: BUN/Creatinine Ratio 14.8 (10.0-20.0); Blood Urea Nitrogen 9 mg/dL (9-23); Glucose 125 mg/dL (74-106)
[2023-05-24] MEDS: PIPERACILLIN-TAZO 4.5GM 100 ML IV SCH ×3 (05:53→23:24)
[2023-05-24] MEDS: NOREPINEPHRINE 8 MG/250ML KIT 250 ML IV SCH ×2 (07:35→13:00)
[2023-05-24] MEDS: PANTOPRAZOLE 40 MG/10 ML VIAL INJ IV SCH (08:29)
[2023-05-24] MEDS: LINEZOLID 600MG/300ML 300 ML IV SCH ×2 (08:29→21:12)
[2023-05-24] MEDS: levETIRAcetam 1000 mg/100ml 100 ML IV SCH (08:29)
[2023-05-24] MEDS: ENOXAPARIN SOD 40 MG/0.4 ML SYRINGE SC SCH (08:29)
[2023-05-24] MEDS: NYSTATIN TOPICAL POWDER 15GM TOP SCH ×2 (08:30→22:00)
[2023-05-24] MEDS ORDERED: POTASSIUM EFFERVESENT TAB 25 MEQ GT ONE (09:00)
[2023-05-24] MEDS: MAGNESIUM SULFATE 1GM/100ML 100 ML IV SCH ×2 (10:20→11:54)
[2023-05-24] MEDS: PROPOFOL 100 ML IV SCH (17:16)
[2023-05-24] MEDS: levETIRAcetam 1500 mg/100ml 100 ML IV SCH (20:45)
[2023-05-25] VITALS (80 sets, daily range): BP systolic 69–150; BP diastolic 37–125; PULSE 69–97; RESP 15–33; TEMP 97.4–97.7; O2SAT 97–100
[2023-05-25] MEDS: PIPERACILLIN-TAZO 4.5GM 100 ML IV SCH ×3 (00:15→13:29)
[2023-05-25] MEDS: PROPOFOL 100 ML IV SCH ×4 (02:44→21:36)
[2023-05-25 04:09] LABS: Eosinophils # (auto) 0.2 10 ^3/uL (0-0.8); Lymphocytes # (auto) 1.6 10 ^3/uL (0.4-5.4); Monocytes # (auto) 0.6 10 ^3/uL (0-1.3); White Blood Cell 7.3 10^3/uL (4.4-10.8)
[2023-05-25 04:12] LABS: Basophils # (auto) 0.1 10 ^3/uL (0-0.2); Basophils % (auto) 0.9 % (0.0-2.0); Eosinophils % (auto) 2.4 % (0.0-7.0); Hematocrit 29.6 % (36.0-46.0); Hemoglobin 9.5 g/dL (12.2-16.2); Mean Corpuscular Hemoglobin 25.5 pg (28.0-32.0); Mean Corpuscular Volume 79.7 fL (80.0-100.0); Neutrophils # (auto) 4.9 10 ^3/uL (1.6-8.6); Neutrophils % (auto) 66.7 % (37.0-80.0); Nucleated Red Blood Cells % 0.1 %; Red Blood Cells 3.72 10^6/uL (4.0-5.20); Red Cell Distribution Width 19.5 % (11.8-14.3)
[2023-05-25 04:21] LABS: Chloride 110 mmol/L (98-107); Potassium 3.4 mmol/L (3.5-5.1); Sodium 141 mmol/L (136-145)
[2023-05-25 04:22] LABS: Anion Gap 6 (5-15); Calcium 9.1 mg/dL (8.5-10.1); Carbon Dioxide 25 mmol/L (20-30)
[2023-05-25 04:27] LABS: BUN/Creatinine Ratio 11.7 (10.0-20.0); Blood Urea Nitrogen 7 mg/dL (9-23); Glucose 114 mg/dL (74-106)
[2023-05-25] MEDS: MIDAZOLAM DRIP 50 mg/50mL 50 ML IV SCH (07:28)
[2023-05-25] MEDS: NOREPINEPHRINE 8 MG/250ML KIT 250 ML IV SCH (07:28)
[2023-05-25] MEDS: PANTOPRAZOLE 40 MG/10 ML VIAL INJ IV SCH (08:35)
[2023-05-25] MEDS: ENOXAPARIN SOD 40 MG/0.4 ML SYRINGE SC SCH (08:35)
[2023-05-25] MEDS: levETIRAcetam 1500 mg/100ml 100 ML IV SCH ×2 (08:35→21:19)
[2023-05-25] MEDS: LINEZOLID 600MG/300ML 300 ML IV SCH ×2 (08:36→21:33)
[2023-05-25] MEDS: NYSTATIN TOPICAL POWDER 15GM TOP SCH ×2 (08:36→22:00)
[2023-05-25] MEDS ORDERED: ALBUMIN 25% 50 ML IV ONE (11:45)
[2023-05-25] MEDS ORDERED: FUROSEMIDE 20 MG/2 ML VIAL IV ONE (12:00)
[2023-05-25] MEDS ORDERED: POTASSIUM EFFERVESENT TAB 25 MEQ GT ONE (12:45)
[2023-05-26] VITALS (107 sets, daily range): BP systolic 88–224; BP diastolic 38–170; PULSE 66–107; RESP 13–24; TEMP 96.1–98.1; O2SAT 95–100
[2023-05-26 03:55] LABS: Eosinophils # (auto) 0.2 10 ^3/uL (0-0.8); Hemoglobin 9.6 g/dL (12.2-16.2); Lymphocytes % (auto) 10.7 % (10.0-50.0); Mean Corpuscular Volume 79.6 fL (80.0-100.0); White Blood Cell 9.6 10^3/uL (4.4-10.8)
[2023-05-26 03:58] LABS: Basophils # (auto) 0.1 10 ^3/uL (0-0.2); Basophils % (auto) 0.7 % (0.0-2.0); Eosinophils % (auto) 2.6 % (0.0-7.0); Hematocrit 29.8 % (36.0-46.0); Mean Corpuscular Hemoglobin 25.5 pg (28.0-32.0); Mean Corpuscular Hgb Conc. 32.1 g/dL (32.0-36.0); Monocytes # (auto) 0.6 10 ^3/uL (0-1.3); Monocytes % (auto) 5.9 % (0.0-12.0); Neutrophils # (auto) 7.7 10 ^3/uL (1.6-8.6); Neutrophils % (auto) 80.1 % (37.0-80.0); Red Blood Cells 3.75 10^6/uL (4.0-5.20); Red Cell Distribution Width 19.4 % (11.8-14.3)
[2023-05-26 04:08] LABS: Alanine Aminotransferase 13 U/L (7-40); Alkaline Phosphatase 125 U/L (46-116); Anion Gap 7 (5-15); BUN/Creatinine Ratio 12.1 (10.0-20.0); Blood Urea Nitrogen 8 mg/dL (9-23); Calcium 8.8 mg/dL (8.7-10.4); Carbon Dioxide 26 mmol/L (20-30); Chloride 107 mmol/L (98-107); Glucose 104 mg/dL (74-106); Magnesium 1.8 mg/dL (1.6-2.6); Potassium 3.7 mmol/L (3.5-5.1); Sodium 140 mmol/L (136-145)
[2023-05-26 04:09] LABS: Albumin 3.4 g/dL (3.2-4.8)
[2023-05-26 04:10] LABS: Aspartate Aminotransferase 47 U/L (13-40); Bilirubin, Total 0.5 mg/dL (0.2-1.0)
[2023-05-26] MEDS: PIPERACILLIN-TAZO 4.5GM 100 ML IV SCH ×3 (05:57→22:31)
[2023-05-26] MEDS: NOREPINEPHRINE 8 MG/250ML KIT 250 ML IV SCH (07:45)
[2023-05-26 07:47] LABS: Base Excess 0.8 mmol/L (-2.0-2.0)
[2023-05-26] MEDS: MIDAZOLAM DRIP 50 mg/50mL 50 ML IV SCH ×2 (09:45→16:06)
[2023-05-26] MEDS ORDERED: VALPROATE INJ 500 MG in SODIUM CHL 0.9% 100 ML IV SCH (10:00)
[2023-05-26] MEDS: ENOXAPARIN SOD 40 MG/0.4 ML SYRINGE SC SCH (10:06)
[2023-05-26] MEDS: PANTOPRAZOLE 40 MG/10 ML VIAL INJ IV SCH (10:06)
[2023-05-26] MEDS: levETIRAcetam 1500 mg/100ml 100 ML IV SCH ×2 (10:09→22:31)
[2023-05-26] MEDS: LINEZOLID 600MG/300ML 300 ML IV SCH ×2 (10:09→22:31)
[2023-05-26] MEDS: NYSTATIN TOPICAL POWDER 15GM TOP SCH ×2 (10:10→22:32)
[2023-05-26] MEDS: PROPOFOL 100 ML IV SCH ×3 (11:56→21:05)
[2023-05-26] MEDS: MAGNESIUM SULFATE 1GM/100ML 100 ML IV SCH ×2 (12:28→13:00)
[2023-05-26] MEDS ORDERED: LORazepam 2MG/ML-1ML VIAL ONE (15:54)
[2023-05-26] MEDS: VALPROATE INJ 750 MG in SODIUM CHL 0.9% 100 ML IV SCH (22:30)
[2023-05-27] VITALS (105 sets, daily range): BP systolic 84–178; BP diastolic 34–79; PULSE 65–119; RESP 11–27; TEMP 96.1–98.5; O2SAT 98–100
[2023-05-27] MEDS: MIDAZOLAM DRIP 50 mg/50mL 50 ML IV SCH ×2 (02:15→23:59)
[2023-05-27] MEDS: PROPOFOL 100 ML IV SCH ×4 (02:48→21:21)
[2023-05-27 03:47] LABS: Eosinophils # (auto) 0.3 10 ^3/uL (0-0.8); Mean Corpuscular Hemoglobin 25.8 pg (28.0-32.0); Monocytes # (auto) 0.6 10 ^3/uL (0-1.3)
[2023-05-27 03:49] LABS: Basophils # (auto) 0 10 ^3/uL (0-0.2); Basophils % (auto) 0.7 % (0.0-2.0); Eosinophils % (auto) 4.8 % (0.0-7.0); Hematocrit 27.6 % (36.0-46.0); Hemoglobin 8.9 g/dL (12.2-16.2); Lymphocytes # (auto) 1.8 10 ^3/uL (0.4-5.4); Lymphocytes % (auto) 25.4 % (10.0-50.0); Mean Corpuscular Hgb Conc. 32.4 g/dL (32.0-36.0); Mean Corpuscular Volume 79.8 fL (80.0-100.0); Monocytes % (auto) 7.9 % (0.0-12.0); Neutrophils # (auto) 4.3 10 ^3/uL (1.6-8.6); Neutrophils % (auto) 61.2 % (37.0-80.0); Red Blood Cells 3.46 10^6/uL (4.0-5.20); Red Cell Distribution Width 19.5 % (11.8-14.3)
[2023-05-27 04:04] LABS: Albumin 3.2 g/dL (3.2-4.8); Alkaline Phosphatase 121 U/L (46-116); Anion Gap 10 (5-15); Aspartate Aminotransferase 38 U/L (13-40); Bilirubin, Total 0.4 mg/dL (0.2-1.0); Blood Urea Nitrogen 9 mg/dL (9-23); Calcium 8.5 mg/dL (8.7-10.4); Carbon Dioxide 23 mmol/L (20-30); Chloride 107 mmol/L (98-107); Glucose 109 mg/dL (74-106); Potassium 3.2 mmol/L (3.5-5.1); Sodium 140 mmol/L (136-145); Total Protein 5.6 g/dL (5.7-8.2)
[2023-05-27 04:23] LABS: Alanine Aminotransferase 9 U/L (7-40)
[2023-05-27] MEDS: PIPERACILLIN-TAZO 4.5GM 100 ML IV SCH ×3 (06:00→22:33)
[2023-05-27] MEDS ORDERED: POTASSIUM CHLORIDE 60 MEQ, LIDOCAINE 1% (LOCAL ANESTH.) 6 ML in SODIUM CHL 0.9% 500 ML IV ONE (06:30)
[2023-05-27 07:14] LABS: Platelet Estimate Adequate
[2023-05-27 07:15] LABS: Anisocytosis Slight; Macrocytosis Slight
[2023-05-27 07:42] LABS: Base Excess 2.2 mmol/L (-2.0-2.0)
[2023-05-27] MEDS: NOREPINEPHRINE 8 MG/250ML KIT 250 ML IV SCH (07:45)
[2023-05-27] MEDS: VALPROATE INJ 750 MG in SODIUM CHL 0.9% 100 ML IV SCH ×3 (08:48→22:34)
[2023-05-27] MEDS: ENOXAPARIN SOD 40 MG/0.4 ML SYRINGE SC SCH (09:06)
[2023-05-27] MEDS: LINEZOLID 600MG/300ML 300 ML IV SCH ×2 (09:07→22:34)
[2023-05-27] MEDS: PANTOPRAZOLE 40 MG/10 ML VIAL INJ IV SCH (09:07)
[2023-05-27] MEDS: levETIRAcetam 1500 mg/100ml 100 ML IV SCH ×2 (09:08→22:34)
[2023-05-27] MEDS: NYSTATIN TOPICAL POWDER 15GM TOP SCH ×2 (10:00→22:34)
[2023-05-27] MEDS: hydrALAZINE HCL 20 MG/ML VL IV PRN (10:20)
[2023-05-28] VITALS (104 sets, daily range): BP systolic 99–188; BP diastolic 28–86; PULSE 59–105; RESP 15–24; TEMP 96.7–98.9; O2SAT 97–100
[2023-05-28] MEDS: PIPERACILLIN-TAZO 4.5GM 100 ML IV SCH ×3 (05:41→21:49)
[2023-05-28] MEDS: VALPROATE INJ 750 MG in SODIUM CHL 0.9% 100 ML IV SCH ×3 (05:41→21:50)
[2023-05-28] MEDS: PROPOFOL 100 ML IV SCH ×2 (07:03→12:36)
[2023-05-28 07:36] LABS: Eosinophils # (auto) 0.1 10 ^3/uL (0-0.8); Eosinophils % (auto) 1.2 % (0.0-7.0); Hemoglobin 8.3 g/dL (12.2-16.2); Lymphocytes # (auto) 1.8 10 ^3/uL (0.4-5.4); Nucleated Red Blood Cells % 0.1 %; Red Cell Distribution Width 19.4 % (11.8-14.3); White Blood Cell 6.2 10^3/uL (4.4-10.8)
[2023-05-28 07:38] LABS: Basophils # (auto) 0.1 10 ^3/uL (0-0.2); Basophils % (auto) 0.9 % (0.0-2.0); Hematocrit 26.1 % (36.0-46.0); Lymphocytes % (auto) 28.9 % (10.0-50.0); Mean Corpuscular Hemoglobin 25.3 pg (28.0-32.0); Mean Corpuscular Hgb Conc. 31.6 g/dL (32.0-36.0); Mean Corpuscular Volume 79.9 fL (80.0-100.0); Monocytes # (auto) 0.5 10 ^3/uL (0-1.3); Monocytes % (auto) 8.2 % (0.0-12.0); Neutrophils # (auto) 3.8 10 ^3/uL (1.6-8.6); Neutrophils % (auto) 60.8 % (37.0-80.0); Red Blood Cells 3.27 10^6/uL (4.0-5.20)
[2023-05-28] MEDS: NOREPINEPHRINE 8 MG/250ML KIT 250 ML IV SCH (07:45)
[2023-05-28 07:49] LABS: Calcium 8.7 mg/dL (8.5-10.1); Chloride 108 mmol/L (98-107); Potassium 3.7 mmol/L (3.5-5.1); Sodium 141 mmol/L (136-145)
[2023-05-28 07:50] LABS: Anion Gap 10 (5-15); Carbon Dioxide 23 mmol/L (20-30)
[2023-05-28 07:55] LABS: BUN/Creatinine Ratio 21.4 (10.0-20.0); Blood Urea Nitrogen 12 mg/dL (9-23); Glucose 95 mg/dL (74-106)
[2023-05-28 08:15] LABS: Base Excess 0.7 mmol/L (-2.0-2.0)
[2023-05-28] MEDS: NYSTATIN TOPICAL POWDER 15GM TOP SCH ×2 (10:00→21:50)
[2023-05-28] MEDS: LINEZOLID 600MG/300ML 300 ML IV SCH ×2 (10:29→21:49)
[2023-05-28] MEDS: PANTOPRAZOLE 40 MG/10 ML VIAL INJ IV SCH (10:30)
[2023-05-28] MEDS: levETIRAcetam 1500 mg/100ml 100 ML IV SCH ×2 (10:30→21:49)
[2023-05-28] MEDS: ENOXAPARIN SOD 40 MG/0.4 ML SYRINGE SC SCH (10:30)
[2023-05-28] MEDS: hydrALAZINE HCL 20 MG/ML VL IV PRN (10:51)
[2023-05-28] MEDS: LORazepam 2MG/ML-1ML VIAL IV PRN (12:14)
[2023-05-28] MEDS ORDERED: ALBUTEROL SULF 2.5 MG/0.5ML(0.5%) NEB SOLN NEB PRN (15:00)
[2023-05-28 18:42] LABS: % Iron Saturation 49.1 % (15-50)
[2023-05-29] VITALS (107 sets, daily range): BP systolic 112–167; BP diastolic 47–79; PULSE 63–123; RESP 14–31; TEMP 96.8–98.5; O2SAT 97–100
[2023-05-29] MEDS: PROPOFOL 100 ML IV SCH ×5 (03:51→23:16)
[2023-05-29 04:05] LABS: Basophils # (auto) 0 10 ^3/uL (0-0.2); Basophils % (auto) 0.5 % (0.0-2.0); Eosinophils # (auto) 0.2 10 ^3/uL (0-0.8); Eosinophils % (auto) 2.4 % (0.0-7.0); Hematocrit 28.6 % (36.0-46.0); Hemoglobin 9.2 g/dL (12.2-16.2); Lymphocytes # (auto) 1.1 10 ^3/uL (0.4-5.4); Lymphocytes % (auto) 16.1 % (10.0-50.0); Mean Corpuscular Hemoglobin 25.8 pg (28.0-32.0); Mean Corpuscular Hgb Conc. 32.2 g/dL (32.0-36.0); Mean Corpuscular Volume 80.2 fL (80.0-100.0); Monocytes # (auto) 0.6 10 ^3/uL (0-1.3); Monocytes % (auto) 8.4 % (0.0-12.0); Neutrophils # (auto) 5.1 10 ^3/uL (1.6-8.6); Neutrophils % (auto) 72.6 % (37.0-80.0); Nucleated Red Blood Cells % 0.1 %; Red Blood Cells 3.57 10^6/uL (4.0-5.20); Red Cell Distribution Width 19.1 % (11.8-14.3)
[2023-05-29 04:14] LABS: Chloride 107 mmol/L (98-107); Potassium 3.2 mmol/L (3.5-5.1); Sodium 140 mmol/L (136-145)
[2023-05-29 04:15] LABS: Anion Gap 9 (5-15); Carbon Dioxide 24 mmol/L (20-30)
[2023-05-29 04:20] LABS: BUN/Creatinine Ratio 21.6 (10.0-20.0); Blood Urea Nitrogen 11 mg/dL (9-23); Glucose 88 mg/dL (74-106)
[2023-05-29] MEDS: VALPROATE INJ 750 MG in SODIUM CHL 0.9% 100 ML IV SCH ×3 (05:45→20:21)
[2023-05-29] MEDS: PIPERACILLIN-TAZO 4.5GM 100 ML IV SCH ×3 (05:45→23:46)
[2023-05-29 06:13] LABS: Base Excess 0.7 mmol/L (-2.0-2.0)
[2023-05-29] MEDS: NOREPINEPHRINE 8 MG/250ML KIT 250 ML IV SCH (07:45)
[2023-05-29] MEDS: MIDAZOLAM DRIP 50 mg/50mL 50 ML IV SCH ×2 (10:28→23:48)
[2023-05-29] MEDS: levETIRAcetam 1500 mg/100ml 100 ML IV SCH ×2 (10:29→20:01)
[2023-05-29] MEDS: LINEZOLID 600MG/300ML 300 ML IV SCH ×2 (10:29→21:38)
[2023-05-29] MEDS: PANTOPRAZOLE 40 MG/10 ML VIAL INJ IV SCH (10:29)
[2023-05-29] MEDS: ENOXAPARIN SOD 40 MG/0.4 ML SYRINGE SC SCH (10:30)
[2023-05-29] MEDS: NYSTATIN TOPICAL POWDER 15GM TOP SCH ×2 (10:30→21:38)
[2023-05-29] MEDS: POTASSIUM CHL 20MEQ/100ML 100 ML IV SCH ×2 (16:21→17:57)
[2023-05-30] VITALS (107 sets, daily range): BP systolic 108–170; BP diastolic 48–77; PULSE 60–112; RESP 14–35; TEMP 95–98; O2SAT 10–100
[2023-05-30 03:04] LABS: Chloride 106 mmol/L (98-107); Potassium 3.3 mmol/L (3.5-5.1); Sodium 140 mmol/L (136-145)
[2023-05-30 03:05] LABS: Anion Gap 10 (5-15); Calcium 8.5 mg/dL (8.7-10.4); Carbon Dioxide 24 mmol/L (20-30)
[2023-05-30 03:10] LABS: Glucose 80 mg/dL (74-106)
[2023-05-30 03:11] LABS: BUN/Creatinine Ratio 23.9 (10.0-20.0); Blood Urea Nitrogen 11 mg/dL (9-23); Magnesium 1.6 mg/dL (1.6-2.6)
[2023-05-30] MEDS: PROPOFOL 100 ML IV SCH ×4 (03:25→23:49)
[2023-05-30] MEDS: VALPROATE INJ 750 MG in SODIUM CHL 0.9% 100 ML IV SCH ×3 (05:34→22:00)
[2023-05-30] MEDS: PIPERACILLIN-TAZO 4.5GM 100 ML IV SCH ×2 (06:45→14:18)
[2023-05-30] MEDS: NOREPINEPHRINE 8 MG/250ML KIT 250 ML IV SCH (07:45)
[2023-05-30] MEDS: hydrALAZINE HCL 20 MG/ML VL IV PRN (08:54)
[2023-05-30] MEDS: LINEZOLID 600MG/300ML 300 ML IV SCH ×2 (10:23→22:00)
[2023-05-30] MEDS: POTASSIUM CHL 20MEQ/100ML 100 ML IV SCH ×3 (10:23→15:08)
[2023-05-30] MEDS: levETIRAcetam 1500 mg/100ml 100 ML IV SCH ×2 (10:24→21:09)
[2023-05-30] MEDS: NYSTATIN TOPICAL POWDER 15GM TOP SCH ×2 (10:24→22:00)
[2023-05-30] MEDS: ENOXAPARIN SOD 40 MG/0.4 ML SYRINGE SC SCH (10:24)
[2023-05-30] MEDS: PANTOPRAZOLE 40 MG/10 ML VIAL INJ IV SCH (10:24)
[2023-05-30 13:05] LABS: INR 1.06 (0.9-1.15); Partial Thromboplastin Time 35.2 SEC (24.5-34.5); Prothrombin Time 11.1 sec (9.3-11.8)
[2023-05-30] MEDS: MAGNESIUM SULFATE 1GM/100ML 100 ML IV SCH ×2 (14:10→15:12)
[2023-05-31] VITALS (91 sets, daily range): BP systolic 95–175; BP diastolic 40–110; PULSE 74–113; RESP 14–21; TEMP 97.4–98; O2SAT 98–100
[2023-05-31] MEDS: PIPERACILLIN-TAZO 4.5GM 100 ML IV SCH ×4 (00:33→21:03)
[2023-05-31] MEDS: MIDAZOLAM DRIP 50 mg/50mL 50 ML IV SCH ×2 (00:34→11:39)
[2023-05-31] MEDS: PROPOFOL 100 ML IV SCH (03:17)
[2023-05-31 04:18] LABS: Chloride 106 mmol/L (98-107); Potassium 4.2 mmol/L (3.5-5.1); Sodium 139 mmol/L (136-145)
[2023-05-31 04:19] LABS: Anion Gap 10 (5-15); Carbon Dioxide 23 mmol/L (20-30)
[2023-05-31 04:20] LABS: Calcium 8.5 mg/dL (8.7-10.4)
[2023-05-31 04:24] LABS: Glucose 102 mg/dL (74-106)
[2023-05-31 04:25] LABS: BUN/Creatinine Ratio 21.3 (10.0-20.0); Blood Urea Nitrogen 10 mg/dL (9-23); Magnesium 1.9 mg/dL (1.6-2.6)
[2023-05-31] MEDS: VALPROATE INJ 750 MG in SODIUM CHL 0.9% 100 ML IV SCH ×3 (04:50→21:54)
[2023-05-31] MEDS ORDERED: LIDOCAINE W/ EPINEPHRINE 1% 20ML VIAL ONE (07:15)
[2023-05-31] MEDS ORDERED: BUPIVACAINE 0.25% INJ 50ML VIAL ONE (07:15)
[2023-05-31 07:25] LABS: Base Excess 0.1 mmol/L (-2.0-2.0)
[2023-05-31] MEDS: NOREPINEPHRINE 8 MG/250ML KIT 250 ML IV SCH (07:45)
[2023-05-31] MEDS ORDERED: fentaNYL CITRATE 100 MCG/2 ML VL ONE (07:49)
[2023-05-31] MEDS ORDERED: ROCURONIUM 10MG/ML 10ML VIAL IV ONE (07:49)
[2023-05-31] MEDS: LINEZOLID 600MG/300ML 300 ML IV SCH ×2 (11:38→21:54)
[2023-05-31] MEDS: PANTOPRAZOLE 40 MG/10 ML VIAL INJ IV SCH (11:41)
[2023-05-31] MEDS: ENOXAPARIN SOD 40 MG/0.4 ML SYRINGE SC SCH (11:46)
[2023-05-31] MEDS: NYSTATIN TOPICAL POWDER 15GM TOP SCH ×2 (11:47→21:05)
[2023-05-31] MEDS: hydrALAZINE HCL 20 MG/ML VL IV PRN (13:55)
[2023-05-31] MEDS: levETIRAcetam 1500 mg/100ml 100 ML IV SCH ×2 (16:22→21:04)
[2023-06-01] VITALS (69 sets, daily range): BP systolic 83–208; BP diastolic 42–180; PULSE 64–123; RESP 15–45; TEMP 94.5–99.9; O2SAT 96–100
[2023-06-01] MEDS: VALPROATE INJ 750 MG in SODIUM CHL 0.9% 100 ML IV SCH ×3 (05:39→22:24)
[2023-06-01] MEDS: PIPERACILLIN-TAZO 4.5GM 100 ML IV SCH (05:39)
[2023-06-01] MEDS: NOREPINEPHRINE 8 MG/250ML KIT 250 ML IV SCH (07:45)
[2023-06-01 09:16] LABS: Base Excess 1.1 mmol/L (-2.0-2.0)
[2023-06-01 09:29] LABS: Basophils # (auto) 0 10 ^3/uL (0-0.2); Basophils % (auto) 0.7 % (0.0-2.0); Eosinophils # (auto) 0.2 10 ^3/uL (0-0.8); Eosinophils % (auto) 3.4 % (0.0-7.0); Hematocrit 26.6 % (36.0-46.0); Lymphocytes # (auto) 1.6 10 ^3/uL (0.4-5.4); Lymphocytes % (auto) 25.5 % (10.0-50.0); Mean Corpuscular Hemoglobin 25.4 pg (28.0-32.0); Mean Corpuscular Hgb Conc. 30.1 g/dL (32.0-36.0); Mean Corpuscular Volume 84.3 fL (80.0-100.0); Monocytes # (auto) 0.6 10 ^3/uL (0-1.3); Neutrophils # (auto) 3.9 10 ^3/uL (1.6-8.6); Neutrophils % (auto) 61.4 % (37.0-80.0); Nucleated Red Blood Cells % 0.3 %; Red Blood Cells 3.16 10^6/uL (4.0-5.20); Red Cell Distribution Width 19.5 % (11.8-14.3); White Blood Cell 6.3 10^3/uL (4.4-10.8)
[2023-06-01 09:42] LABS: Albumin 2.6 g/dL (3.2-4.8); Alkaline Phosphatase 111 U/L (46-116); Anion Gap 7 (5-15); Aspartate Aminotransferase 48 U/L (13-40); Calcium 8.4 mg/dL (8.5-10.1); Carbon Dioxide 24 mmol/L (20-30); Chloride 109 mmol/L (98-107); Glucose 71 mg/dL (74-106); Potassium 3.6 mmol/L (3.5-5.1); Sodium 140 mmol/L (136-145)
[2023-06-01 09:43] LABS: Bilirubin, Total 0.4 mg/dL (0.2-1.0)
[2023-06-01 09:47] LABS: Alanine Aminotransferase < 9 U/L (7-40); BUN/Creatinine Ratio 11.6 (10.0-20.0); Blood Urea Nitrogen < 5 mg/dL (9-23)
[2023-06-01] MEDS: levETIRAcetam 1500 mg/100ml 100 ML IV SCH ×2 (09:57→22:24)
[2023-06-01] MEDS: LINEZOLID 600MG/300ML 300 ML IV SCH ×2 (10:01→22:25)
[2023-06-01] MEDS: PANTOPRAZOLE 40 MG/10 ML VIAL INJ IV SCH (10:02)
[2023-06-01] MEDS: ENOXAPARIN SOD 40 MG/0.4 ML SYRINGE SC SCH (10:02)
[2023-06-01] MEDS: NYSTATIN TOPICAL POWDER 15GM TOP SCH ×2 (10:09→22:25)
[2023-06-01] MEDS ORDERED: Jevity 1.2 Cal/Fiber 1 Liter GT SCH (10:45)
[2023-06-01] MEDS: FREE WATER GT SCH ×2 (12:05→18:12)
[2023-06-01] MEDS: MUPIROCIN 2% OINT 15gm or 22gm FOR MRSA NARES EACHNOSTRI SCH (22:00)
[2023-06-01] MEDS: METOPROLOL TARTRATE 25 MG TAB PO SCH (22:23)
[2023-06-02] VITALS (82 sets, daily range): BP systolic 79–177; BP diastolic 28–127; PULSE 74–120; RESP 13–48; TEMP 97–99.1; O2SAT 96–100
[2023-06-02] MEDS: PROPOFOL 100 ML IV SCH ×2 (01:07→23:37)
[2023-06-02 04:13] LABS: Basophils # (auto) 0.1 10 ^3/uL (0-0.2); Basophils % (auto) 0.8 % (0.0-2.0); Eosinophils # (auto) 0.1 10 ^3/uL (0-0.8); Hemoglobin 8.2 g/dL (12.2-16.2); Lymphocytes # (auto) 1.4 10 ^3/uL (0.4-5.4); Monocytes # (auto) 0.7 10 ^3/uL (0-1.3); Neutrophils # (auto) 5.1 10 ^3/uL (1.6-8.6); White Blood Cell 7.4 10^3/uL (4.4-10.8)
[2023-06-02 04:15] LABS: Eosinophils % (auto) 1.6 % (0.0-7.0); Hematocrit 25.8 % (36.0-46.0); Lymphocytes % (auto) 18.5 % (10.0-50.0); Mean Corpuscular Hemoglobin 25.5 pg (28.0-32.0); Mean Corpuscular Hgb Conc. 31.8 g/dL (32.0-36.0); Monocytes % (auto) 10.1 % (0.0-12.0); Nucleated Red Blood Cells % 0.1 %; Red Blood Cells 3.22 10^6/uL (4.0-5.20); Red Cell Distribution Width 18.9 % (11.8-14.3)
[2023-06-02 04:27] LABS: Chloride 106 mmol/L (98-107); Potassium 3.4 mmol/L (3.5-5.1); Sodium 141 mmol/L (136-145)
[2023-06-02 04:28] LABS: Anion Gap 9 (5-15); Calcium 8.3 mg/dL (8.7-10.4); Carbon Dioxide 26 mmol/L (20-30)
[2023-06-02 04:33] LABS: BUN/Creatinine Ratio 16.7 (10.0-20.0); Blood Urea Nitrogen 7 mg/dL (9-23); Glucose 112 mg/dL (74-106)
[2023-06-02] MEDS: VALPROATE INJ 750 MG in SODIUM CHL 0.9% 100 ML IV SCH ×3 (05:52→21:45)
[2023-06-02] MEDS: FREE WATER GT SCH ×4 (05:52→18:37)
[2023-06-02] MEDS: NOREPINEPHRINE 8 MG/250ML KIT 250 ML IV SCH (07:45)
[2023-06-02] MEDS ORDERED: POTASSIUM EFFERVESENT TAB 25 MEQ GT ONE (08:30)
[2023-06-02] MEDS: MIDAZOLAM DRIP 50 mg/50mL 50 ML IV SCH (09:45)
[2023-06-02] MEDS: PANTOPRAZOLE 40 MG/10 ML VIAL INJ IV SCH (10:11)
[2023-06-02] MEDS: levETIRAcetam 1500 mg/100ml 100 ML IV SCH ×2 (10:11→21:47)
[2023-06-02] MEDS: ENOXAPARIN SOD 40 MG/0.4 ML SYRINGE SC SCH (10:11)
[2023-06-02] MEDS: LINEZOLID 600MG/300ML 300 ML IV SCH ×2 (10:11→21:46)
[2023-06-02] MEDS: METOPROLOL TARTRATE 25 MG TAB PO SCH ×2 (10:12→21:47)
[2023-06-02] MEDS: NYSTATIN TOPICAL POWDER 15GM TOP SCH ×2 (10:13→21:46)
[2023-06-02] MEDS: MUPIROCIN 2% OINT 15gm or 22gm FOR MRSA NARES EACHNOSTRI SCH ×2 (12:20→21:46)
[2023-06-03] VITALS (47 sets, daily range): BP systolic 98–155; BP diastolic 26–99; PULSE 68–100; RESP 13–25; TEMP 97.3–99; O2SAT 97–100
[2023-06-03] MEDS: FREE WATER GT SCH ×4 (06:00→17:28)
[2023-06-03] MEDS: VALPROATE INJ 750 MG in SODIUM CHL 0.9% 100 ML IV SCH ×3 (06:00→17:41)
[2023-06-03] MEDS: NOREPINEPHRINE 8 MG/250ML KIT 250 ML IV SCH (07:45)
[2023-06-03] MEDS: levETIRAcetam 1500 mg/100ml 100 ML IV SCH ×2 (09:01→21:49)
[2023-06-03 09:27] LABS: Base Excess 1.8 mmol/L (-2.0-2.0)
[2023-06-03] MEDS: MUPIROCIN 2% OINT 15gm or 22gm FOR MRSA NARES EACHNOSTRI SCH ×2 (09:36→21:52)
[2023-06-03] MEDS: LINEZOLID 600MG/300ML 300 ML IV SCH ×2 (09:36→21:58)
[2023-06-03] MEDS: ENOXAPARIN SOD 40 MG/0.4 ML SYRINGE SC SCH (09:36)
[2023-06-03] MEDS: PANTOPRAZOLE 40 MG/10 ML VIAL INJ IV SCH (09:36)
[2023-06-03] MEDS: METOPROLOL TARTRATE 25 MG TAB PO SCH ×2 (09:36→21:52)
[2023-06-03] MEDS: MIDAZOLAM DRIP 50 mg/50mL 50 ML IV SCH (09:45)
[2023-06-03] MEDS: NYSTATIN TOPICAL POWDER 15GM TOP SCH ×2 (09:54→21:52)
[2023-06-03 10:23] LABS: Eosinophils # (auto) 0.1 10 ^3/uL (0-0.8); Hemoglobin 8.1 g/dL (12.2-16.2)
[2023-06-03 10:26] LABS: Basophils # (auto) 0.1 10 ^3/uL (0-0.2); Eosinophils % (auto) 0.8 % (0.0-7.0); Hematocrit 25.6 % (36.0-46.0); Lymphocytes # (auto) 1.4 10 ^3/uL (0.4-5.4); Lymphocytes % (auto) 16.9 % (10.0-50.0); Mean Corpuscular Hemoglobin 25.7 pg (28.0-32.0); Mean Corpuscular Hgb Conc. 31.6 g/dL (32.0-36.0); Mean Corpuscular Volume 81.1 fL (80.0-100.0); Monocytes # (auto) 0.8 10 ^3/uL (0-1.3); Monocytes % (auto) 9.9 % (0.0-12.0); Neutrophils # (auto) 5.8 10 ^3/uL (1.6-8.6); Neutrophils % (auto) 71.4 % (37.0-80.0); Red Blood Cells 3.16 10^6/uL (4.0-5.20); Red Cell Distribution Width 18.8 % (11.8-14.3); White Blood Cell 8.1 10^3/uL (4.4-10.8)
[2023-06-03 10:34] LABS: Chloride 105 mmol/L (98-107); Potassium 3.7 mmol/L (3.5-5.1); Sodium 141 mmol/L (136-145)
[2023-06-03 10:35] LABS: Anion Gap 7 (5-15); Calcium 8.9 mg/dL (8.5-10.1); Carbon Dioxide 29 mmol/L (20-30)
[2023-06-03 10:40] LABS: Blood Urea Nitrogen 10 mg/dL (9-23); Glucose 157 mg/dL (74-106)
[2023-06-03] MEDS: PROPOFOL 100 ML IV SCH (21:16)
[2023-06-04] VITALS (41 sets, daily range): BP systolic 104–161; BP diastolic 48–102; PULSE 74–109; RESP 16–30; TEMP 97.5–98.4; O2SAT 97–100
[2023-06-04] MEDS: VALPROATE INJ 750 MG in SODIUM CHL 0.9% 100 ML IV SCH (02:30)
[2023-06-04 04:37] LABS: Albumin 3.1 g/dL (3.2-4.8); Alkaline Phosphatase 120 U/L (46-116); Anion Gap 8 (5-15); Aspartate Aminotransferase 37 U/L (13-40); Bilirubin, Total 0.3 mg/dL (0.2-1.0); Blood Urea Nitrogen 9 mg/dL (9-23); Calcium 8.5 mg/dL (8.7-10.4); Carbon Dioxide 28 mmol/L (20-30); Chloride 103 mmol/L (98-107); Glucose 168 mg/dL (74-106); Potassium 3.5 mmol/L (3.5-5.1); Sodium 139 mmol/L (136-145); Total Protein 5.6 g/dL (5.7-8.2)
[2023-06-04 04:42] LABS: Alanine Aminotransferase < 9 U/L (7-40)
[2023-06-04] MEDS: FREE WATER GT SCH ×4 (05:50→18:18)
[2023-06-04 07:06] LABS: Base Excess 6.4 mmol/L (-2.0-2.0)
[2023-06-04] MEDS: NOREPINEPHRINE 8 MG/250ML KIT 250 ML IV SCH (07:45)
[2023-06-04] MEDS: MIDAZOLAM DRIP 50 mg/50mL 50 ML IV SCH (09:45)
[2023-06-04] MEDS: LINEZOLID 600MG/300ML 300 ML IV SCH (10:21)
[2023-06-04] MEDS: PANTOPRAZOLE 40 MG/10 ML VIAL INJ IV SCH (10:21)
[2023-06-04] MEDS: levETIRAcetam 1500 mg/100ml 100 ML IV SCH ×2 (10:21→21:57)
[2023-06-04] MEDS: ENOXAPARIN SOD 40 MG/0.4 ML SYRINGE SC SCH (10:22)
[2023-06-04] MEDS: METOPROLOL TARTRATE 25 MG TAB PO SCH ×2 (10:24→21:58)
[2023-06-04] MEDS: NYSTATIN TOPICAL POWDER 15GM TOP SCH ×2 (10:29→21:58)
[2023-06-04] MEDS: MUPIROCIN 2% OINT 15gm or 22gm FOR MRSA NARES EACHNOSTRI SCH ×2 (10:29→21:58)
[2023-06-04] MEDS ORDERED: Jevity 1.2 Cal/Fiber 1 Liter GT SCH (10:30)
[2023-06-04] MEDS: VALPROATE INJ 1,000 MG in SODIUM CHL 0.9% 100 ML IV SCH ×2 (12:34→18:17)
[2023-06-04] MEDS ORDERED: ROCURONIUM 10MG/ML 10ML VIAL IV ONE ×2 (15:51→16:00)
[2023-06-04] MEDS ORDERED: MIDAZOLAM HCL 5 MG/ML-1ML VIAL ONE (15:51)
[2023-06-04] MEDS ORDERED: MIDAZOLAM HCL 2MG/2ML 2ml VIAL (1mg/ml) IV ONE (16:00)
[2023-06-04] MEDS ORDERED: BUPIVACAINE HCL 0.25% P/F 10 ML VIAL ONE (16:35)
[2023-06-04] MEDS ORDERED: LIDOCAINE W/ EPINEPHRINE 2% INJ 20ML VIAL ONE (16:36)
[2023-06-05] VITALS (94 sets, daily range): BP systolic 54–160; BP diastolic 12–114; PULSE 60–132; RESP 16–30; TEMP 97.3–99; O2SAT 97–100
[2023-06-05] MEDS: FREE WATER GT SCH ×4 (00:21→18:08)
[2023-06-05] MEDS: VALPROATE INJ 1,000 MG in SODIUM CHL 0.9% 100 ML IV SCH ×3 (00:32→17:31)
[2023-06-05] MEDS: LORazepam 2MG/ML-1ML VIAL IV PRN (05:14)
[2023-06-05] MEDS: NOREPINEPHRINE 8 MG/250ML KIT 250 ML IV SCH (05:14)
[2023-06-05 09:08] LABS: Basophils # (auto) 0 10 ^3/uL (0-0.2); Basophils % (auto) 0.6 % (0.0-2.0); Eosinophils # (auto) 0 10 ^3/uL (0-0.8); Eosinophils % (auto) 0.3 % (0.0-7.0); Hematocrit 24.9 % (36.0-46.0); Lymphocytes # (auto) 1.7 10 ^3/uL (0.4-5.4); Lymphocytes % (auto) 33.1 % (10.0-50.0); Mean Corpuscular Hemoglobin 25.9 pg (28.0-32.0); Mean Corpuscular Hgb Conc. 32.1 g/dL (32.0-36.0); Mean Corpuscular Volume 80.9 fL (80.0-100.0); Monocytes # (auto) 0.6 10 ^3/uL (0-1.3); Monocytes % (auto) 11.5 % (0.0-12.0); Neutrophils # (auto) 2.8 10 ^3/uL (1.6-8.6); Neutrophils % (auto) 54.5 % (37.0-80.0); Nucleated Red Blood Cells % 0.3 %; Red Blood Cells 3.08 10^6/uL (4.0-5.20); Red Cell Distribution Width 18.7 % (11.8-14.3); White Blood Cell 5.1 10^3/uL (4.4-10.8)
[2023-06-05] MEDS: MIDAZOLAM DRIP 50 mg/50mL 50 ML IV SCH ×2 (09:11→17:33)
[2023-06-05 09:12] LABS: Base Excess 7.2 mmol/L (-2.0-2.0)
[2023-06-05 09:26] LABS: Albumin 3.1 g/dL (3.2-4.8); Alkaline Phosphatase 114 U/L (46-116); Anion Gap 6 (5-15); Aspartate Aminotransferase 29 U/L (13-40); BUN/Creatinine Ratio 28.6 (10.0-20.0); Bilirubin, Total 0.3 mg/dL (0.2-1.0); Blood Urea Nitrogen 12 mg/dL (9-23); Calcium 8.7 mg/dL (8.5-10.1); Carbon Dioxide 30 mmol/L (20-30); Chloride 106 mmol/L (98-107); Glucose 172 mg/dL (74-106); Potassium 3.2 mmol/L (3.5-5.1); Sodium 142 mmol/L (136-145); Total Protein 5.6 g/dL (5.7-8.2)
[2023-06-05 09:30] LABS: Alanine Aminotransferase < 9 U/L (7-40)
[2023-06-05] MEDS: METOPROLOL TARTRATE 25 MG TAB PO SCH ×2 (10:00→21:47)
[2023-06-05] MEDS ORDERED: POTASSIUM EFFERVESENT TAB 25 MEQ GT ONE (11:30)
[2023-06-05] MEDS: levETIRAcetam 1500 mg/100ml 100 ML IV SCH ×2 (11:45→21:46)
[2023-06-05] MEDS: ENOXAPARIN SOD 40 MG/0.4 ML SYRINGE SC SCH (11:46)
[2023-06-05] MEDS: PANTOPRAZOLE 40 MG/10 ML VIAL INJ IV SCH (11:46)
[2023-06-05] MEDS: MUPIROCIN 2% OINT 15gm or 22gm FOR MRSA NARES EACHNOSTRI SCH (11:47)
[2023-06-05] MEDS: NYSTATIN TOPICAL POWDER 15GM TOP SCH ×2 (11:47→21:48)
[2023-06-06] VITALS (100 sets, daily range): BP systolic 65–217; BP diastolic 29–177; PULSE 74–114; RESP 15–33; TEMP 97.2–98.8; O2SAT 92–100
[2023-06-06] MEDS: VALPROATE INJ 1,000 MG in SODIUM CHL 0.9% 100 ML IV SCH ×3 (00:40→16:40)
[2023-06-06 04:09] LABS: Basophils # (auto) 0 10 ^3/uL (0-0.2); Eosinophils # (auto) 0.1 10 ^3/uL (0-0.8); Hemoglobin 7.8 g/dL (12.2-16.2); Mean Corpuscular Volume 80.1 fL (80.0-100.0); Monocytes # (auto) 1.2 10 ^3/uL (0-1.3); Neutrophils # (auto) 4.6 10 ^3/uL (1.6-8.6); Nucleated Red Blood Cells % 0.3 %; White Blood Cell 7.8 10^3/uL (4.4-10.8)
[2023-06-06 04:12] LABS: Basophils % (auto) 0.5 % (0.0-2.0); Hematocrit 23.9 % (36.0-46.0); Lymphocytes # (auto) 1.9 10 ^3/uL (0.4-5.4); Lymphocytes % (auto) 24.4 % (10.0-50.0); Mean Corpuscular Hemoglobin 26.1 pg (28.0-32.0); Mean Corpuscular Hgb Conc. 32.6 g/dL (32.0-36.0); Monocytes % (auto) 15.3 % (0.0-12.0); Neutrophils % (auto) 58.8 % (37.0-80.0); Red Blood Cells 2.98 10^6/uL (4.0-5.20); Red Cell Distribution Width 18.7 % (11.8-14.3)
[2023-06-06 04:20] LABS: INR 1.09 (0.9-1.15); Partial Thromboplastin Time 27.7 SEC (24.5-34.5); Prothrombin Time 11.4 sec (9.3-11.8)
[2023-06-06 04:21] LABS: Anion Gap 7 (5-15); Carbon Dioxide 29 mmol/L (20-30); Chloride 107 mmol/L (98-107); Potassium 3.5 mmol/L (3.5-5.1); Sodium 143 mmol/L (136-145)
[2023-06-06 04:22] LABS: Calcium 8.6 mg/dL (8.7-10.4)
[2023-06-06 04:27] LABS: Blood Urea Nitrogen 18 mg/dL (9-23); Glucose 144 mg/dL (74-106)
[2023-06-06] MEDS: FREE WATER GT SCH ×4 (05:51→16:41)
[2023-06-06 07:32] LABS: Base Excess 5.5 mmol/L (-2.0-2.0)
[2023-06-06] MEDS: MIDAZOLAM DRIP 50 mg/50mL 50 ML IV SCH ×3 (08:18→22:09)
[2023-06-06] MEDS: NOREPINEPHRINE 8 MG/250ML KIT 250 ML IV SCH (08:19)
[2023-06-06] MEDS: METOPROLOL TARTRATE 25 MG TAB PO SCH ×2 (09:32→22:09)
[2023-06-06] MEDS: ENOXAPARIN SOD 40 MG/0.4 ML SYRINGE SC SCH (09:33)
[2023-06-06] MEDS: PANTOPRAZOLE 40 MG/10 ML VIAL INJ IV SCH (09:52)
[2023-06-06] MEDS: levETIRAcetam 1500 mg/100ml 100 ML IV SCH ×2 (09:52→22:08)
[2023-06-06] MEDS: NYSTATIN TOPICAL POWDER 15GM TOP SCH ×2 (09:52→22:10)
[2023-06-06] MEDS: SODIUM CHLORIDE 0.9% 1,000 ML IV SCH (11:03)
[2023-06-06] MEDS: IPRATROPIUM BROM 0.5 MG/2.5ML INH SOL NEB PRN (18:17)
[2023-06-06] MEDS: ALBUTEROL SULF 2.5 MG/0.5ML(0.5%) NEB SOLN NEB PRN (18:17)
[2023-06-07] VITALS (111 sets, daily range): BP systolic 81–177; BP diastolic 37–75; PULSE 69–109; RESP 13–20; TEMP 97.5–97.9; O2SAT 93–100
[2023-06-07] MEDS: SODIUM CHLORIDE 0.9% 1,000 ML IV SCH (00:23)
[2023-06-07] MEDS: FREE WATER GT SCH ×4 (00:23→18:31)
[2023-06-07] MEDS: VALPROATE INJ 1,000 MG in SODIUM CHL 0.9% 100 ML IV SCH ×3 (01:19→18:00)
[2023-06-07 04:06] LABS: Basophils # (auto) 0 10 ^3/uL (0-0.2); Eosinophils # (auto) 0.1 10 ^3/uL (0-0.8); Hemoglobin 7.1 g/dL (12.2-16.2); Lymphocytes # (auto) 1.4 10 ^3/uL (0.4-5.4); Monocytes # (auto) 0.8 10 ^3/uL (0-1.3); White Blood Cell 6.7 10^3/uL (4.4-10.8)
[2023-06-07 04:09] LABS: Basophils % (auto) 0.5 % (0.0-2.0); Eosinophils % (auto) 1.5 % (0.0-7.0); Hematocrit 22.1 % (36.0-46.0); Lymphocytes % (auto) 20.4 % (10.0-50.0); Mean Corpuscular Hgb Conc. 32.3 g/dL (32.0-36.0); Mean Corpuscular Volume 80.4 fL (80.0-100.0); Monocytes % (auto) 11.6 % (0.0-12.0); Neutrophils # (auto) 4.4 10 ^3/uL (1.6-8.6); Nucleated Red Blood Cells % 0.3 %; Red Blood Cells 2.75 10^6/uL (4.0-5.20); Red Cell Distribution Width 18.7 % (11.8-14.3)
[2023-06-07 04:27] LABS: Albumin 2.8 g/dL (3.2-4.8); Alkaline Phosphatase 96 U/L (46-116); Anion Gap 7 (5-15); Aspartate Aminotransferase 29 U/L (13-40); BUN/Creatinine Ratio 40.5 (10.0-20.0); Bilirubin, Total 0.3 mg/dL (0.2-1.0); Blood Urea Nitrogen 15 mg/dL (9-23); Calcium 8.2 mg/dL (8.7-10.4); Carbon Dioxide 27 mmol/L (20-30); Chloride 107 mmol/L (98-107); Glucose 121 mg/dL (74-106); Potassium 3.4 mmol/L (3.5-5.1); Sodium 141 mmol/L (136-145); Total Protein 4.9 g/dL (5.7-8.2)
[2023-06-07 04:45] LABS: Alanine Aminotransferase < 9 U/L (7-40)
[2023-06-07] MEDS: MAGNESIUM SULFATE 1GM/100ML 100 ML IV SCH ×2 (06:19→07:55)
[2023-06-07 06:44] LABS: Base Excess 4.2 mmol/L (-2.0-2.0)
[2023-06-07] MEDS: NOREPINEPHRINE 8 MG/250ML KIT 250 ML IV SCH (07:45)
[2023-06-07] MEDS: MIDAZOLAM DRIP 50 mg/50mL 50 ML IV SCH ×2 (07:56→18:54)
[2023-06-07] MEDS ORDERED: ceFAZolin 1GM/50ML 50 ML IV ONE (09:00)
[2023-06-07] MEDS: ENOXAPARIN SOD 40 MG/0.4 ML SYRINGE SC SCH (09:51)
[2023-06-07] MEDS: PANTOPRAZOLE 40 MG/10 ML VIAL INJ IV SCH (09:51)
[2023-06-07] MEDS: METOPROLOL TARTRATE 25 MG TAB PO SCH ×2 (09:52→22:17)
[2023-06-07] MEDS: levETIRAcetam 1500 mg/100ml 100 ML IV SCH ×2 (09:52→22:17)
[2023-06-07] MEDS: NYSTATIN TOPICAL POWDER 15GM TOP SCH ×2 (10:06→22:18)
[2023-06-07] MEDS ORDERED: SOD CHL 0.9%/ KCL 40MEQ 1,000 ML IV ONE (10:30)
[2023-06-07] MEDS ORDERED: SODIUM FERR GLUC 62.5MG/5ML 125 MG in SODIUM CHL 0.9% 100 ML IV SCH (12:00)
[2023-06-07 14:52] LABS: COVID19 ANTIGEN SOFIA FIA NEGATIVE (NEGATIVE)
[2023-06-07] MEDS: hydrALAZINE HCL 20 MG/ML VL IV PRN (18:59)
[2023-06-08] VITALS (110 sets, daily range): BP systolic 102–180; BP diastolic 42–81; PULSE 69–123; RESP 13–82; TEMP 97.7–98.5; O2SAT 95–100
[2023-06-08] MEDS: FREE WATER GT SCH ×5 (00:13→23:04)
[2023-06-08] MEDS: VALPROATE INJ 1,000 MG in SODIUM CHL 0.9% 100 ML IV SCH ×3 (01:00→18:05)
[2023-06-08 04:04] LABS: White Blood Cell 6.9 10^3/uL (4.4-10.8)
[2023-06-08 04:07] LABS: Hematocrit 23.4 % (36.0-46.0); Hemoglobin 7.5 g/dL (12.2-16.2); Mean Corpuscular Hemoglobin 25.5 pg (28.0-32.0); Mean Corpuscular Hgb Conc. 32.1 g/dL (32.0-36.0); Mean Corpuscular Volume 79.6 fL (80.0-100.0); Red Blood Cells 2.94 10^6/uL (4.0-5.20); Red Cell Distribution Width 18.2 % (11.8-14.3)
[2023-06-08 04:19] LABS: Band Neutrophils % (manual) 0; Basophils % (manual) 0 (0.0-2.0); Blast Cells 0; Metamyelocytes % 0; Myelocytes % 0; Promyelocytes % 0; Reactive Lymphocytes 0
[2023-06-08 04:23] LABS: INR 1.13 (0.9-1.15); Partial Thromboplastin Time 33.6 SEC (24.5-34.5); Prothrombin Time 11.8 sec (9.3-11.8)
[2023-06-08 05:40] LABS: Eosinophils % (manual) 2 (0-7); Lymphocytes % (manual) 14 (10.0-50.0); Monocytes % (manual) 3 (0-12)
[2023-06-08 05:41] LABS: Platelet Estimate Adequate
[2023-06-08] MEDS: IPRATROPIUM BROM 0.5 MG/2.5ML INH SOL NEB PRN (06:59)
[2023-06-08] MEDS: ALBUTEROL SULF 2.5 MG/0.5ML(0.5%) NEB SOLN NEB PRN (07:00)
[2023-06-08] MEDS: NOREPINEPHRINE 8 MG/250ML KIT 250 ML IV SCH (07:45)
[2023-06-08 08:25] LABS: Base Excess 1.2 mmol/L (-2.0-2.0)
[2023-06-08 08:53] LABS: Anion Gap 8 (5-15); Carbon Dioxide 24 mmol/L (20-30); Chloride 111 mmol/L (98-107); Potassium 3.6 mmol/L (3.5-5.1); Sodium 143 mmol/L (136-145)
[2023-06-08 08:54] LABS: Calcium 8.2 mg/dL (8.7-10.4)
[2023-06-08 08:58] LABS: Glucose 148 mg/dL (74-106)
[2023-06-08 08:59] LABS: BUN/Creatinine Ratio 28.6 (10.0-20.0); Blood Urea Nitrogen 10 mg/dL (9-23); Magnesium 1.9 mg/dL (1.6-2.6)
[2023-06-08] MEDS: METOPROLOL TARTRATE 25 MG TAB PO SCH ×2 (09:05→21:24)
[2023-06-08] MEDS ORDERED: ROCURONIUM 10MG/ML 10ML VIAL IV ONE ×2 (11:06→11:15)
[2023-06-08] MEDS: levETIRAcetam 1500 mg/100ml 100 ML IV SCH ×2 (11:26→21:23)
[2023-06-08] MEDS: PANTOPRAZOLE 40 MG/10 ML VIAL INJ IV SCH (11:26)
[2023-06-08] MEDS: NYSTATIN TOPICAL POWDER 15GM TOP SCH ×2 (12:00→21:24)
[2023-06-08] MEDS: hydrALAZINE HCL 20 MG/ML VL IV PRN (15:21)
[2023-06-08] MEDS: IRON SUCROSE COMPLEX 100 ML IV SCH (17:02)
[2023-06-08] MEDS: ENOXAPARIN SOD 40 MG/0.4 ML SYRINGE SC SCH (17:03)
[2023-06-09] VITALS (85 sets, daily range): BP systolic 92–148; BP diastolic 29–103; PULSE 66–108; RESP 13–28; TEMP 96.8–98.2; O2SAT 92–99
[2023-06-09] MEDS: hydrALAZINE HCL 20 MG/ML VL IV PRN (00:08)
[2023-06-09] MEDS: VALPROATE INJ 1,000 MG in SODIUM CHL 0.9% 100 ML IV SCH ×3 (00:19→17:00)
[2023-06-09 04:03] LABS: Hematocrit 21.3 % (36.0-46.0); Mean Corpuscular Hemoglobin 25.6 pg (28.0-32.0); Mean Corpuscular Hgb Conc. 31.8 g/dL (32.0-36.0); Mean Corpuscular Volume 80.4 fL (80.0-100.0); Red Blood Cells 2.65 10^6/uL (4.0-5.20); Red Cell Distribution Width 18.8 % (11.8-14.3); White Blood Cell 7.5 10^3/uL (4.4-10.8)
[2023-06-09 04:20] LABS: Albumin 2.6 g/dL (3.2-4.8); Alkaline Phosphatase 88 U/L (46-116); Anion Gap 6 (5-15); Aspartate Aminotransferase 24 U/L (13-40); BUN/Creatinine Ratio 29.4 (10.0-20.0); Bilirubin, Total 0.2 mg/dL (0.2-1.0); Blood Urea Nitrogen 10 mg/dL (9-23); Calcium 8.1 mg/dL (8.7-10.4); Carbon Dioxide 27 mmol/L (20-30); Chloride 109 mmol/L (98-107); Glucose 153 mg/dL (74-106); Potassium 3.1 mmol/L (3.5-5.1); Sodium 142 mmol/L (136-145); Total Protein 4.7 g/dL (5.7-8.2)
[2023-06-09 04:21] LABS: Alanine Aminotransferase < 9 U/L (7-40)
[2023-06-09 04:28] LABS: Hemoglobin 6.8 g/dL (12.2-16.2)
[2023-06-09 04:29] LABS: Basophils % (manual) 0 (0.0-2.0); Blast Cells 0; Eosinophils % (manual) 0 (0-7); Metamyelocytes % 0; Myelocytes % 0; Promyelocytes % 0; Reactive Lymphocytes 0
[2023-06-09 04:57] LABS: Band Neutrophils % (manual) 2; Lymphocytes % (manual) 18 (10.0-50.0); Monocytes % (manual) 3 (0-12); Platelet Estimate Adequate
[2023-06-09] MEDS: POTASSIUM CHL 20MEQ/100ML 100 ML IV SCH ×2 (04:57→06:54)
[2023-06-09] MEDS: FREE WATER GT SCH ×4 (05:01→23:16)
[2023-06-09] MEDS: NOREPINEPHRINE 8 MG/250ML KIT 250 ML IV SCH (09:35)
[2023-06-09] MEDS: SOD CHL 0.9%/ KCL 40MEQ 1,000 ML IV SCH ×2 (09:38→22:35)
[2023-06-09] MEDS: levETIRAcetam 1500 mg/100ml 100 ML IV SCH ×2 (09:39→21:05)
[2023-06-09] MEDS: PANTOPRAZOLE 40 MG/10 ML VIAL INJ IV SCH (09:39)
[2023-06-09] MEDS: METOPROLOL TARTRATE 25 MG TAB PO SCH ×2 (09:40→21:05)
[2023-06-09] MEDS: ENOXAPARIN SOD 40 MG/0.4 ML SYRINGE SC SCH (09:40)
[2023-06-09] MEDS: NYSTATIN TOPICAL POWDER 15GM TOP SCH ×2 (09:41→21:05)
[2023-06-09] MEDS: MIDAZOLAM DRIP 50 mg/50mL 50 ML IV SCH (09:45)
[2023-06-09] MEDS: ALBUTEROL SULF 2.5 MG/0.5ML(0.5%) NEB SOLN NEB SCH ×3 (14:01→23:57)
[2023-06-09] MEDS: IPRATROPIUM BROM 0.5 MG/2.5ML INH SOL NEB SCH ×3 (14:01→23:57)
[2023-06-09] MEDS: ACETYLCYSTEINE 10 %(100MG/ML) SOL 4ML NEB SCH ×3 (14:04→23:57)
[2023-06-09] MEDS: IRON SUCROSE COMPLEX 100 ML IV SCH (18:06)
[2023-06-10] VITALS (101 sets, daily range): BP systolic 84–172; BP diastolic 23–91; PULSE 72–111; RESP 14–34; TEMP 97.9–98.9; O2SAT 90–100
[2023-06-10 00:39] LABS: Hematocrit 28.2 % (36.0-46.0); Mean Corpuscular Hgb Conc. 31.7 g/dL (32.0-36.0); Mean Corpuscular Volume 81.9 fL (80.0-100.0); Red Cell Distribution Width 17.8 % (11.8-14.3); White Blood Cell 11.5 10^3/uL (4.4-10.8)
[2023-06-10 00:43] LABS: Band Neutrophils % (manual) 0; Basophils % (manual) 0 (0.0-2.0); Blast Cells 0; Metamyelocytes % 0; Myelocytes % 0; Promyelocytes % 0; Reactive Lymphocytes 0; Red Blood Cells 3.45 10^6/uL (4.0-5.20)
[2023-06-10 00:55] LABS: Alkaline Phosphatase 101 U/L (46-116); Aspartate Aminotransferase 25 U/L (13-40); BUN/Creatinine Ratio 28.6 (10.0-20.0); Blood Urea Nitrogen 10 mg/dL (9-23); Glucose 173 mg/dL (74-106)
[2023-06-10 00:56] LABS: Bilirubin, Total 0.3 mg/dL (0.2-1.0); Total Protein 5.4 g/dL (5.7-8.2)
[2023-06-10 00:58] LABS: Chloride 110 mmol/L (98-107); Potassium 4.2 mmol/L (3.5-5.1); Sodium 142 mmol/L (136-145)
[2023-06-10 01:01] LABS: Anion Gap 5 (5-15); Calcium 8.2 mg/dL (8.7-10.4); Carbon Dioxide 27 mmol/L (20-30)
[2023-06-10 01:02] LABS: Anisocytosis Slight; Eosinophils % (manual) 1 (0-7); Lymphocytes % (manual) 9 (10.0-50.0); Monocytes % (manual) 8 (0-12); Platelet Estimate Adequate
[2023-06-10 01:03] LABS: Alanine Aminotransferase < 9 U/L (7-40)
[2023-06-10] MEDS: VALPROATE INJ 1,000 MG in SODIUM CHL 0.9% 100 ML IV SCH ×3 (01:14→21:29)
[2023-06-10] MEDS: FREE WATER GT SCH ×3 (06:00→17:56)
[2023-06-10] MEDS: IPRATROPIUM BROM 0.5 MG/2.5ML INH SOL NEB SCH ×3 (06:14→18:13)
[2023-06-10] MEDS: ALBUTEROL SULF 2.5 MG/0.5ML(0.5%) NEB SOLN NEB SCH ×3 (06:14→18:13)
[2023-06-10] MEDS: ACETYLCYSTEINE 10 %(100MG/ML) SOL 4ML NEB SCH ×3 (06:15→18:14)
[2023-06-10 07:38] LABS: Base Excess -0.2 mmol/L (-2.0-2.0)
[2023-06-10] MEDS: NOREPINEPHRINE 8 MG/250ML KIT 250 ML IV SCH (07:45)
[2023-06-10] MEDS: MIDAZOLAM DRIP 50 mg/50mL 50 ML IV SCH ×2 (09:45→13:17)
[2023-06-10] MEDS: levETIRAcetam 1500 mg/100ml 100 ML IV SCH ×2 (10:53→21:29)
[2023-06-10] MEDS: METOPROLOL TARTRATE 25 MG TAB PO SCH ×2 (10:53→21:29)
[2023-06-10] MEDS: PANTOPRAZOLE 40 MG/10 ML VIAL INJ IV SCH (10:53)
[2023-06-10] MEDS: ENOXAPARIN SOD 40 MG/0.4 ML SYRINGE SC SCH (10:53)
[2023-06-10] MEDS: NYSTATIN TOPICAL POWDER 15GM TOP SCH ×2 (10:54→21:28)
[2023-06-10] MEDS: SOD CHL 0.9%/ KCL 40MEQ 1,000 ML IV SCH ×2 (11:55→17:56)
[2023-06-10] MEDS: IRON SUCROSE COMPLEX 100 ML IV SCH (17:56)
[2023-06-11] VITALS (60 sets, daily range): BP systolic 79–147; BP diastolic 28–90; PULSE 73–98; RESP 13–28; TEMP 98.1–98.9; O2SAT 90–100
[2023-06-11] MEDS: FREE WATER GT SCH ×3 (00:17→12:27)
[2023-06-11] MEDS: IPRATROPIUM BROM 0.5 MG/2.5ML INH SOL NEB SCH ×3 (00:33→12:16)
[2023-06-11] MEDS: ACETYLCYSTEINE 10 %(100MG/ML) SOL 4ML NEB SCH ×2 (00:33→06:25)
[2023-06-11] MEDS: ALBUTEROL SULF 2.5 MG/0.5ML(0.5%) NEB SOLN NEB SCH ×3 (00:35→12:16)
[2023-06-11 04:20] LABS: Hemoglobin 7.6 g/dL (12.2-16.2); Mean Corpuscular Hgb Conc. 31.8 g/dL (32.0-36.0)
[2023-06-11 04:23] LABS: Hematocrit 23.9 % (36.0-46.0); Mean Corpuscular Hemoglobin 26.3 pg (28.0-32.0); Mean Corpuscular Volume 82.7 fL (80.0-100.0); Red Blood Cells 2.89 10^6/uL (4.0-5.20); Red Cell Distribution Width 18.2 % (11.8-14.3); White Blood Cell 12.9 10^3/uL (4.4-10.8)
[2023-06-11] MEDS: NOREPINEPHRINE 8 MG/250ML KIT 250 ML IV SCH (04:31)
[2023-06-11 04:32] LABS: Albumin 2.6 g/dL (3.2-4.8); Alkaline Phosphatase 85 U/L (46-116); Anion Gap 5 (5-15); Aspartate Aminotransferase 23 U/L (13-40); BUN/Creatinine Ratio 30.3 (10.0-20.0); Bilirubin, Total 0.2 mg/dL (0.2-1.0); Blood Urea Nitrogen 10 mg/dL (9-23); Carbon Dioxide 26 mmol/L (20-30); Chloride 112 mmol/L (98-107); Glucose 157 mg/dL (74-106); Potassium 4.3 mmol/L (3.5-5.1); Sodium 143 mmol/L (136-145); Total Protein 4.7 g/dL (5.7-8.2)
[2023-06-11 04:34] LABS: Basophils % (manual) 0 (0.0-2.0); Blast Cells 0; Eosinophils % (manual) 0 (0-7); Myelocytes % 0; Promyelocytes % 0; Reactive Lymphocytes 0
[2023-06-11 04:39] LABS: Alanine Aminotransferase < 9 U/L (7-40)
[2023-06-11] MEDS: VALPROATE INJ 1,000 MG in SODIUM CHL 0.9% 100 ML IV SCH (05:50)
[2023-06-11 07:09] LABS: Anisocytosis Slight; Band Neutrophils % (manual) 2; Lymphocytes % (manual) 8 (10.0-50.0); Metamyelocytes % 1; Monocytes % (manual) 14 (0-12); Platelet Estimate Adequate; Stomatocytes Few
[2023-06-11 09:49] LABS: Base Excess 0.4 mmol/L (-2.0-2.0)
[2023-06-11] MEDS ORDERED: LINEZOLID 600MG/300ML 300 ML IV SCH (10:00)
[2023-06-11] MEDS: levETIRAcetam 1500 mg/100ml 100 ML IV SCH (10:23)
[2023-06-11] MEDS: ENOXAPARIN SOD 40 MG/0.4 ML SYRINGE SC SCH (10:24)
[2023-06-11] MEDS: METOPROLOL TARTRATE 25 MG TAB PO SCH (10:25)
[2023-06-11] MEDS: NYSTATIN TOPICAL POWDER 15GM TOP SCH (10:26)
[2023-06-11] MEDS ORDERED: PIPERACILLIN-TAZOB 3.375GM 100 ML IV SCH (12:00)
[2023-06-11] MEDS: PANTOPRAZOLE 40 MG/10 ML VIAL INJ IV SCH (12:27)
[2023-06-11] MEDS ORDERED: ATROPINE SULFATE 1 MG/1 ML VIAL ONE (12:56)
[2023-06-11] MEDS ORDERED: SODIUM BICARBONATE 8.4% INJ 50ML SYRINGE IV ONE (15:40)
[2023-06-11] MEDS ORDERED: EPINEPHrine HCL 1 MG/10 ML SYRG IV ONE (15:40)
== END 2023-06-11 13:19 | DRG 5 ==
LOC: EDBD 06:48 → ER 06:48 → TELE 10:59 → ICU WEST 14:34
PROVIDERS: ADMIT Nurse Practitioner Family; ATTEND Nurse Practitioner Acute Care
PROC: 5A1955Z Respiratory Ventilation, Greater than 96 Consecutive Hours (ICD-10-PCS; principal; 2023-05-12)
PROC: 0BH17EZ Insertion of Endotracheal Airway into Trachea, Via Natural or Artificial Opening (ICD-10-PCS; 2023-05-12)
PROC: 5A12012 Performance of Cardiac Output, Single, Manual (ICD-10-PCS; 2023-05-12)
PROC: 02HV33Z Insertion of Infusion Device into Superior Vena Cava, Percutaneous Approach (ICD-10-PCS; 2023-05-12)
PROC: 0B110F4 Bypass Trachea to Cutaneous with Tracheostomy Device, Open Approach (ICD-10-PCS; 2023-05-31)
PROC: 0B21XFZ Change Tracheostomy Device in Trachea, External Approach (ICD-10-PCS; 2023-06-04)
PROC: 0BH18EZ Insertion of Endotracheal Airway into Trachea, Via Natural or Artificial Opening Endoscopic (ICD-10-PCS; 2023-06-08)
PROC: 30233N1 Transfusion of Nonautologous Red Blood Cells into Peripheral Vein, Percutaneous Approach (ICD-10-PCS; 2023-06-09)
DX: A41.1 Sepsis due to other specified staphylococcus (principal); I46.9 Cardiac arrest, cause unspecified; R65.21 Severe sepsis with septic shock; J69.0 Pneumonitis due to inhalation of food and vomit; G92.8 Other toxic encephalopathy; I21.A1 Myocardial infarction type 2; G93.1 Anoxic brain damage, not elsewhere classified; E87.4 Mixed disorder of acid-base balance; D69.6 Thrombocytopenia, unspecified; J96.01 Acute respiratory failure with hypoxia; D64.9 Anemia, unspecified; E11.9 Type 2 diabetes mellitus without complications; I50.9 Heart failure, unspecified; I11.0 Hypertensive heart disease with heart failure; F20.9 Schizophrenia, unspecified; E66.9 Obesity, unspecified; E78.5 Hyperlipidemia, unspecified; I47.19 Other supraventricular tachycardia; R56.9 Unspecified convulsions; I49.01 Ventricular fibrillation; J95.03 Malfunction of tracheostomy stoma; E87.6 Hypokalemia; F17.200 Nicotine dependence, unspecified, uncomplicated; G24.01 Drug induced subacute dyskinesia; Z20.822 Contact with and (suspected) exposure to COVID-19; G93.89 Other specified disorders of brain; N13.6 Pyonephrosis; R74.01 Elevation of levels of liver transaminase levels; Z88.8 Allergy status to other drugs, medicaments and biological substances; Z79.2 Long term (current) use of antibiotics; Z79.899 Other long term (current) drug therapy; Z79.4 Long term (current) use of insulin; Z86.73 Personal history of transient ischemic attack (TIA), and cerebral infarction without residual deficits; Z88.1 Allergy status to other antibiotic agents; Z79.01 Long term (current) use of anticoagulants; Z82.49 Family history of ischemic heart disease and other diseases of the circulatory system; Z83.3 Family history of diabetes mellitus; Z99.11 Dependence on respirator [ventilator] status; Z79.84 Long term (current) use of oral hypoglycemic drugs; Z68.43 Body mass index [BMI] 50.0-59.9, adult
CPT/HCPCS: 36415; 36556; 36600; 70360; 70450; 70490; 70551; 71045; 71250; 74176; 76775; 76856; 80048; 80053; 80164; 80307; 80320; 81001; 82550; 82728; 82805; 82962; 83036; 83540; 83550; 83605; 83735; 83880; 84100; 84443; 84484; 85007; 85025; 85027; 85379; 85610; 85730; 86592; 86850; 86900; 86901; 86920; 87040; 87070; 87077; 87081; 87186; 87205; 87426; 87804; 93005; 93306; 93886; 93970; 94002; 94003; 94640; 94668; 95819; 96365; 99152; 99153; 99291; A4618; C9113; G0378; J0461; J1756; J2001; J2250; J2543; J2704; J3480; J3490; P9047